=== PATIENT | female | born 1955 | race Hispanic/Latino ===

== ENCOUNTER 2018-08-20 13:54 | Emergency (ER) | payer OTHER ==
--- OUTSIDE RECORDS SUMMARY | 2018-08-20 13:56 | XMS REPORT ---
:1955 [facility] Address [address] [place] [address] Care Team Providers Name Role Phone Unavailable Unavailable Unavailable Payers Payer Name Policy Type Policy Number Effective Date Expiration Date Problems This patient has no known problems. Allergies, Adverse Reactions, Alerts Allergy Allergy Status Severity Reaction(s) Onset Inactive Treating Comments Name Type Date Date Clinician No Known DA Active U 2018-06 Allergies -16 00:00:0 0 Medications This patient has no known medications.
[2018-08-20] MEDS ORDERED: FENTANYL CITR 100 MCG/2 ML ONE (14:38)
--- NOTE | 2018-08-20 14:58 | ER ---
Nurse's Notes [facility] Name: Shayy Blanco Age: 63 yrs Sex: Female : 1955 Arrival Date: 08/20/2018 Time: 13:55 Bed 13 Private MD: Diagnosis: Dysuria Presentation: 08/20 13:57 Presenting complaint: Patient states: burning with urination and frequency that began ss this morning. Denies fever. Transition of care: patient was not received from another setting of care. Onset of symptoms was August 20, 2018. Risk Assessment: Do you want to hurt yourself or someone else? Patient reports no desire to harm self or others. Initial Sepsis Screen: Does the patient have a suspected source of infection? Yes: Dysuria/Frequency/Urgency/UTI. Care prior to arrival: None. 13:57 Method Of Arrival: Ambulatory ss 13:57 Acuity: AVA 3 ss 13:57 Initial Sepsis Screen: Does the patient meet any 2 criteria? RR > 20 per min. No. ss Patient's initial sepsis screen is negative. Historical: - Allergies: 13:59 No Known Allergies; ss - PMHx: 13:59 uterine CA; Hypertension; ss - PSHx: 13:59 Cholecystectomy; ; Hysterectomy; ss - Immunization history:: Adult Immunizations up to date. - Social history:: Smoking status: Patient/guardian denies using tobacco. - Ebola Screening: : Patient denies exposure to infectious person Patient denies travel to an Ebola-affected area in the 21 days before illness onset. Screenin:15 Abuse screen: Denies threats or abuse. Denies injuries from another. Nutritional mg2 screening: No deficits noted. Tuberculosis screening: No symptoms or risk factors identified. Fall Risk None identified. Assessment: 14:15 General: Appears in no apparent distress. uncomfortable, Behavior is calm, cooperative, mg2 appropriate for age. Pain: Complains of pain in suprapubic area Pain currently is 10 out of 10 on a pain scale. Quality of pain is described as burning, pressure. Neuro: Level of Consciousness is awake, alert, obeys commands, Oriented to person, place, time, situation. Cardiovascular: Patient's skin is warm and dry. Respiratory: Airway is patent Respiratory effort is even, unlabored, Respiratory pattern is regular, symmetrical. Derm: Skin is pink, warm \T\ dry. 15:09 Reassessment: Pt will be discharged after shot time. mg2 Vital Signs: 13:59 BP 122 / 93; Pulse 84; Resp 22; Temp 97.0(TE); Pulse Ox 97% on R/A; Weight 85.73 kg; ss Height 5 ft. 2 in. (157.48 cm); Pain 10/10; 15:25 BP 120 / 90; Pulse 83; Resp 16 S; Pulse Ox 98% on R/A; Pain 8/10; mg2 15:26 Pain 8/10; mg2 13:59 Body Mass Index 34.57 (85.73 kg, 157.48 cm) ED Course: 13:55 Patient arrived in ED. 13:57 Triage completed. 13:59 Arm band placed on right wrist. 14:04 Dorene Aguilera FNP-C is PHCP. snw 14:04 Gallo Caballero MD is Attending Physician. snw 14:04 Anna Sanchez RN is Primary Nurse. [facility] 14:15 Patient has correct armband on for positive identification. Bed in low position. Call mg2 light in reach. Side rails up X 1. 15:08 No provider procedures requiring assistance completed. Patient did not have IV access mg2 during this emergency room visit. Administered Medications: 14:33 Drug: fentaNYL (PF) 50 mcg Route: IM; Site: right deltoid; jl7 15:26 Follow up: Pain 8/10 Adult; Response: No adverse reaction; Pain is decreased mg2 15:11 Drug: Rocephin (cefTRIAXone) 1 grams Route: IM; Site: right gluteus; mg2 15:26 Follow up: Response: No adverse reaction mg2 Outcome: 14:57 Discharge ordered by . snw 15:25 Discharged to home ambulatory. mg2 15:25 Condition: stable 15:25 Discharge instructions given to patient, family, Instructed on discharge instructions, follow up and referral plans. medication usage, Demonstrated understanding of instructions, follow-up care, medications, Prescriptions given X 1. 15:27 Patient left the ED. mg2 Signatures: Dorene Aguilera FNP-C FNP-Csnw Deedee Hinson RN RN Anna Sanchez RN RN jl7 Santiago Salazar RN RN mg2 Corrections: (The following items were deleted from the chart) 14:00 13:57 Acuity: AVA 4 ss ss
--- NOTE | 2018-08-20 14:58 | EDPHYS ---
Physician Documentation [facility] Name: Shayy Blanco Age: 63 yrs Sex: Female : 1955 Arrival Date: 08/20/2018 Time: 13:55 Bed 13 Private MD: ED Physician Gallo Caballero HPI: 08/20 14:25 This 63 yrs old Female presents to ER via Ambulatory with complaints of Pain With snw Urination. 14:25 Onset: The symptoms/episode began/occurred suddenly. Associated signs and symptoms: snw Pertinent positives: dysuria. Modifying factors: The patient symptoms are alleviated by nothing. The patient has experienced similar episodes in the past, "all I need is the shot". The patient has been recently seen by a physician: seeing Dr. Belle for chemo. Last chemo three weeks ago. Next one due 08/27/18. Historical: - Allergies: 13:59 No Known Allergies; ss - PMHx: 13:59 uterine CA; Hypertension; ss - PSHx: 13:59 Cholecystectomy; ; Hysterectomy; ss - Immunization history:: Adult Immunizations up to date. - Social history:: Smoking status: Patient/guardian denies using tobacco. - Ebola Screening: : Patient denies exposure to infectious person Patient denies travel to an Ebola-affected area in the 21 days before illness onset. ROS: 14:24 Constitutional: Negative for fever, chills, and weight loss, Eyes: Negative for injury, snw pain, redness, and discharge, ENT: Negative for injury, pain, and discharge, Neck: Negative for injury, pain, and swelling, Cardiovascular: Negative for chest pain, palpitations, and edema, Respiratory: Negative for shortness of breath, cough, wheezing, and pleuritic chest pain, Abdomen/GI: Negative for abdominal pain, nausea, vomiting, diarrhea, and constipation, Back: Negative for injury and pain, MS/Extremity: Negative for injury and deformity, Skin: Negative for injury, rash, and discoloration, Neuro: Negative for headache, weakness, numbness, tingling, and seizure, Psych: Negative for depression, anxiety, suicide ideation, homicidal ideation, and hallucinations. 14:24 : Positive for urinary symptoms, small amounts, burning with urination. Exam: 14:22 Head/Face: Normocephalic, atraumatic. Eyes: Pupils equal round and reactive to light, snw extra-ocular motions intact. Lids and lashes normal. Conjunctiva and sclera are non-icteric and not injected. Cornea within normal limits. Periorbital areas with no swelling, redness, or edema. ENT: Nares patent. No nasal discharge, no septal abnormalities noted. Tympanic membranes are normal and external auditory canals are clear. Oropharynx with no redness, swelling, or masses, exudates, or evidence of obstruction, uvula midline. Mucous membranes moist. Neck: Trachea midline, no thyromegaly or masses palpated, and no cervical lymphadenopathy. Supple, full range of motion without nuchal rigidity, or vertebral point tenderness. No Meningismus. Chest/axilla: Normal chest wall appearance and motion. Nontender with no deformity. No lesions are appreciated. Cardiovascular: Regular rate and rhythm with a normal S1 and S2. No gallops, murmurs, or rubs. Normal PMI, no JVD. No pulse deficits. 14:22 Back: No spinal tenderness. No costovertebral tenderness. Full range of motion. MS/ Extremity: Pulses equal, no cyanosis. Neurovascular intact. Full, normal range of motion. Neuro: Awake and alert, GCS 15, oriented to person, place, time, and situation. Cranial nerves II-XII grossly intact. Motor strength 5/5 in all extremities. Sensory grossly intact. Cerebellar exam normal. Normal gait. Psych: Awake, alert, with orientation to person, place and time. Behavior, mood, and affect are within normal limits. 14:22 Constitutional: The patient appears alert, awake, restless, uncomfortable. 14:22 Respiratory: the patient does not display signs of respiratory distress, Respirations: shallow respirations, tachypnea, Breath sounds: decreased breath sounds, that are moderate. 14:22 Abdomen/GI: Inspection: abdomen appears normal, Bowel sounds: normal, Palpation: mild abdominal tenderness, moderate abdominal tenderness, in the suprapubic area. 14:22 Skin: Appearance: Color: pale, Temperature: normal temperature, Moisture: normal moisture. Vital Signs: 13:59 BP 122 / 93; Pulse 84; Resp 22; Temp 97.0(TE); Pulse Ox 97% on R/A; Weight 85.73 kg; ss Height 5 ft. 2 in. (157.48 cm); Pain 10/10; 15:25 BP 120 / 90; Pulse 83; Resp 16 S; Pulse Ox 98% on R/A; Pain 8/10; mg2 15:26 Pain 8/10; mg2 13:59 Body Mass Index 34.57 (85.73 kg, 157.48 cm) ss MDM: 14:07 Patient medically screened. jose antonio 15:24 Data reviewed: vital signs, nurses notes. Data interpreted: Pulse oximetry: on room air snw is 97 %. Interpretation: normal. Counseling: I had a detailed discussion with the patient and/or guardian regarding: the historical points, exam findings, and any diagnostic results supporting the discharge/admit diagnosis, lab results, the need for outpatient follow up, to return to the emergency department if symptoms worsen or persist or if there are any questions or concerns that arise at home. Special discussion: I have referred the patient to see his PCP for further evaluation of high blood pressure. Based on the history and exam findings, there is no indication for further emergent testing or inpatient evaluation. I discussed with the patient/guardian the need to see the primary care provider for further evaluation of the symptoms. 08/20 14:21 Order name: Urine Microscopic Only; Complete Time: 15:24 snw 08/20 14:21 Order name: Urine Culture snw 08/20 14:39 Order name: Urine Dipstick--Ancillary (enter results) eb Administered Medications: 14:33 Drug: fentaNYL (PF) 50 mcg Route: IM; Site: right deltoid; jl7 15:26 Follow up: Pain 8/10 Adult; Response: No adverse reaction; Pain is decreased mg2 15:11 Drug: Rocephin (cefTRIAXone) 1 grams Route: IM; Site: right gluteus; mg2 15:26 Follow up: Response: No adverse reaction mg2 Disposition: 16:03 Co-signature as Attending Physician, Gallo Caballero MD I agree with the assessment and kdr plan of care. Disposition: 08/20/18 14:57 Discharged to Home. Impression: Dysuria. - Condition is Stable. - Discharge Instructions: Dysuria. - Prescriptions for Macrobid 100 mg Oral Capsule - take 1 capsule by ORAL route every 12 hours for 10 days; 20 capsule. - Medication Reconciliation Form, Thank You Letter, Antibiotic Education, Prescription Opioid Use form. - Follow up: Private Physician; When: Tomorrow; Reason: Recheck today's complaints, Continuance of care, Re-evaluation by your physician. Follow up: Emergency Department; When: As needed; Reason: Worsening of condition. Signatures: Dispatcher [employer] EDRaheel Shaikh MD MD cha Rittger, Kevin, MD MD kdr Therrien, Shelly, PODIATRIST-C PODIATRIST-Csnw Deedee Hinson RN RN ss Anna Sanchez RN RN jl7 Santiago Salazar RN RN mg2 Corrections: (The following items were deleted from the chart) 15:27 14:57 08/20/2018 14:57 Discharged to Home. Impression: Dysuria. Condition is Stable. mg2 Forms are Medication Reconciliation Form, Thank You Letter, Antibiotic Education, Prescription Opioid Use. Follow up: Private Physician; When: Tomorrow; Reason: Recheck today's complaints, Continuance of care, Re-evaluation by your physician. Follow up: Emergency Department; When: As needed; Reason: Worsening of condition. snw
[2018-08-20 15:11] LABS: Urine Bacteria >50 /HPF (<20); Urine Culture Reflex Order REFLEXED; Urine RBC >50 /HPF (NONE SEEN)
[2018-08-20] MEDS ORDERED: WATER FOR INJ,STERILE 10 ML ONE (15:15)
[2018-08-20] MEDS ORDERED: CEFTRIAXONE 1000 MG/VIAL ONE (15:15)
[2018-08-20 16:19] LABS: Urine Blood 3+ (NEG); Urine Glucose NEGATIVE (NEG); Urine Protein 3+ (NEG)
== END 2018-08-20 15:27 | disposition home or self-care (01) ==
LOC: ER 13:54
DX: R30.0 Dysuria (principal); I10 Essential (primary) hypertension; Z85.42 Personal history of malignant neoplasm of other parts of uterus
CPT/HCPCS: 87086; 87088; 96372; 99283; J3010; 81003; 81015

== ENCOUNTER 2018-09-10 18:31 | Observation (INO) | payer OTHER ==
--- OUTSIDE RECORDS SUMMARY | 2018-09-10 18:33 | XMS REPORT ---
:1955 [facility] Address [address] [place] [address] [address] [place] [address] Care Team Providers Name Role Phone Unavailable [...]
[2018-09-10] MEDS ORDERED: MORPHINE 4 MG/ML SYR ONE (19:40)
[2018-09-10] MEDS ORDERED: ONDANSETRON 4 MG/2 ML VIAL ONE (19:40)
[2018-09-10 19:43] LABS: Absolute Lymphocytes (CBC) 1.6 K/uL (0.7-4.9); Absolute Monocytes 1.2 K/uL (0.1-1.3); Absolute Neutrophil 6.4 K/uL (1.8-8.0); Basophils % 0.6 % (0-1.3); Hematocrit 43.6 % (36.0-45.0); MPV 7.9 fL (7.6-11.3); RBC Red Blood Cell Count 4.77 M/uL (3.86-4.86)
[2018-09-10 20:00] LABS: Albumin 3.9 g/dL (3.4-5.0); Bilirubin Direct 0.2 mg/dL (0-0.2); Bilirubin Total 0.5 mg/dL (0.2-1.0); Potassium 3.9 mmol/L (3.5-5.1); Protein, Total 8.2 g/dL (6.4-8.2)
--- NOTE | 2018-09-10 20:23 | RAD REPORT ---
EXAM DESCRIPTION: CT - Stone Protocol - 09/10/2018 7:46 pm CLINICAL HISTORY: Abdominal pain. Left lower quadrant pain COMPARISON: None. TECHNIQUE: Computed axial tomography of the abdomen pelvis was obtained without oral or IV contrast. Lack of IV and oral contrast limits evaluation of solid organs, bowel, and vessels. Coronal reformat alejandrina images were obtained and reviewed. All CT scans are performed using dose optimization technique as appropriate and may include automated exposure control or mA/KV adjustment according to patient size. FINDINGS: A renal calculus is not seen. An ureteral calculus is not noted. A bladder calculus is not present. The liver, spleen, pancreas and adrenals appear grossly normal The gallbladder has been removed There is no evidence of diverticulitis. A hysterectomy has been performed. Many, bilateral pulmonary nodules are present varying in size from a few millimeters to 19 millimeter s. Some contain small cavities. A 17 millimeter soft tissue structure within the left iliac chain is suspicious for a lymph node Inferior vena cava is flat which may indicate dehydration IMPRESSION: Negative for a genitourinary calculus Multiple, bilateral pulmonary nodules some which contain cavities. These may represent metastases, se ptic emboli or other infection 17 millimeter left iliac chain lymph node is suspected
[2018-09-10 21:28] LABS: Urine Bacteria >50 /HPF (<20); Urine Culture Reflex Order REFLEXED; Urine RBC <5 /HPF (NONE SEEN)
--- NOTE | 2018-09-10 21:54 | ER ---
Nurse's Notes [facility] Name: Shayy Blanco Age: 63 yrs Sex: Female : 1955 Arrival Date: 09/10/2018 Time: 18:34 Bed 8 Private MD: Diagnosis: Pyelonephritis;Dehydration Presentation: 09/10 19:05 Presenting complaint: Patient states: Pain to LLQ of abdomen that began this morning, lp1 worsening; States nausea and "I feel like I'm going to get a UTI"; Denies diarrhea, constipation; States currently receiving treatment at [facility] for Leukemia, Lymphoma, endometrial cancer. Transition of care: patient was not received from another setting of care. Onset of symptoms was September 10, 2018. Risk Assessment: Do you want to hurt yourself or someone else? Patient reports no desire to harm self or others. Initial Sepsis Screen: Does the patient meet any 2 criteria? No. Patient's initial sepsis screen is negative. Does the patient have a suspected source of infection? No. Patient's initial sepsis screen is negative. Care prior to arrival: None. 19:05 Method Of Arrival: Wheelchair lp1 19:05 Acuity: AVA 3 lp1 Triage Assessment: 19:08 General: Appears uncomfortable, Behavior is appropriate for age. Pain: Complains of lp1 pain in left lower quadrant. Pain: Noted to be grimacing. GI: Reports lower abdominal pain, nausea. Historical: - Allergies: 19:08 No Known Allergies; lp1 - Home Meds: 19:08 Atenolol Oral [Active]; Magnesium Oxide Oral [Active]; lp1 - PMHx: 19:08 Hypertension; Uterine CA; lymphoma; Leukemia; lp1 - PSHx: 19:08 ; Hysterectomy; Cholecystectomy; lp1 - Immunization history:: Adult Immunizations up to date. - Social history:: Smoking status: Patient/guardian denies using tobacco. - Ebola Screening: : No symptoms or risks identified at this time. Screenin:08 Abuse screen: Denies threats or abuse. Denies injuries from another. Nutritional lp1 screening: No deficits noted. Tuberculosis screening: No symptoms or risk factors identified. 19:25 Fall Risk IV access (20 points). aa1 Assessment: 19:25 General: Appears in no apparent distress. uncomfortable, Behavior is calm, cooperative, aa1 appropriate for age. Pain: Complains of pain in suprapubic area and left lower quadrant Pain began this morning. Neuro: Level of Consciousness is awake, alert, obeys commands, Oriented to person, place, time, situation, Moves all extremities. Gait is steady, Speech is normal. Cardiovascular: Heart tones S1 S2 present Rhythm is regular. Respiratory: Airway is patent Respiratory effort is even, unlabored, Respiratory pattern is regular, symmetrical. GI: Abdomen is non-distended, Abd is soft X 4 quads Abdomen is tender to palpation in suprapubic area and left lower quadrant Reports lower abdominal pain, nausea. : No signs and/or symptoms were reported regarding the genitourinary system. EENT: No signs and/or symptoms were reported regarding the EENT system. Derm: Skin is intact, is healthy with good turgor, Skin is pink, warm \\T\\ dry. Musculoskeletal: Circulation, motion, and sensation intact. Capillary refill < 3 seconds. 20:30 Reassessment: Patient appears in no apparent distress at this time. Patient and/or aa1 family updated on plan of care and expected duration. Pain level reassessed. Patient is alert, oriented x 3, equal unlabored respirations, skin warm/dry/pink. Awaiting lab results. 21:35 Reassessment: Patient appears in no apparent distress at this time. Patient and/or aa1 family updated on plan of care and expected duration. Pain level reassessed. Patient is alert, oriented x 3, equal unlabored respirations, skin warm/dry/pink. Pt awaiting provider reassessment. 22:53 Reassessment: Patient appears in no apparent distress at this time. Patient and/or aa1 family updated on plan of care and expected duration. Pain level reassessed. Patient is alert, oriented x 3, equal unlabored respirations, skin warm/dry/pink. Attempted to call report to 2nd floor, was told nurse unavailable and will call back. 23:23 Reassessment: Patient appears in no apparent distress at this time. Patient is alert, aa1 oriented x 3, equal unlabored respirations, skin warm/dry/pink. Report given to GEOFFREY Payne Patient states feeling better. Patient states symptoms have improved. Vital Signs: 19:07 BP 147 / 98; Pulse 105; Resp 20; Temp 98.9(O); Pulse Ox 97% on R/A; Weight 86.18 kg; lp1 Height 5 ft. 2 in. (157.48 cm); Pain 10/10; 20:06 BP 131 / 71; Pulse 94; Resp 20; Pulse Ox 97% on R/A; Pain 7/10; aa1 21:30 BP 139 / 77; Pulse 88; Resp 18; Pulse Ox 99% on R/A; aa1 22:51 BP 143 / 81; Pulse 93; Resp 18; Pulse Ox 98% on R/A; Pain 8/10; aa1 23:23 BP 130 / 73; Pulse 93; Resp 16; Temp 98.7; Pulse Ox 96% on R/A; Pain 0/10; aa1 23:51 BP 114 / 75; Pulse 97; Resp 16; Pulse Ox 99% on R/A; Pain 0/10; aa1 19:07 Body Mass Index 34.75 (86.18 kg, 157.48 cm) lp1 ED Course: 18:34 Patient arrived in ED. mr 19:07 Triage completed. lp1 19:07 Arm band placed on left wrist. lp1 19:14 Mukund Stuart MD is Attending Physician. tw4 19:25 Patient has correct armband on for positive identification. Placed in gown. Bed in low aa1 position. Call light in reach. Pulse ox on. NIBP on. Warm blanket given. 19:30 Initial lab(s) drawn, by me, sent to lab. Inserted saline lock: 20 gauge in left aa1 antecubital area, using aseptic technique. Blood collected. 19:[address] 19:46 CT completed. Patient tolerated procedure well. Patient moved back [place] 19:51 Elda Forrest, GEOFFREY is Primary Nurse. aa1 20:00 Urine collected: clean catch specimen, clear. aa1 21:53 Jaylin Do MD is Hospitalizing Provider. tw4 22:54 No provider procedures requiring assistance completed. Patient admitted, IV remains in aa1 place. Administered Medications: 19:34 Drug: morphine 4 mg Route: IVP; Infused Over: 2 mins; Site: left antecubital; tl1 20:30 Follow up: Response: No adverse reaction; Pain is decreased aa1 19:34 Drug: Zofran 4 mg Route: IVP; Infused Over: 2 mins; Site: left antecubital; tl1 20:30 Follow up: Response: No adverse reaction; Nausea is decreased aa1 21:49 Drug: Rocephin - (cefTRIAXone) 1 grams Route: IVPB; Infused Over: 5 mins; Site: left tl1 antecubital; 21:59 Drug: fentaNYL (PF) 25 mcg Route: IVP; Infused Over: 2 mins; Site: left antecubital; tl1 23:00 Follow up: Response: No adverse reaction; Pain is unchanged, physician notified aa1 21:59 Drug: NS 0.9% 1000 ml Route: IV; Rate: 1 bolus; Site: left antecubital; tl1 22:30 Follow up: IV Status: Completed infusion aa1 23:15 Drug: Dilaudid 1 mg Route: IVP; Site: left antecubital; aa1 23:50 Follow up: Response: No adverse reaction; Pain is decreased aa1 Outcome: 21:54 Decision to Hospitalize by Provider. tw4 23:51 Admitted to Med/surg accompanied by tech, family with patient, via wheelchair, room aa1 224, with chart, Report called to GEOFFREY Payne 23:51 Condition: stable 23:51 Instructed on the need for admit, Demonstrated understanding of instructions. 23:53 Patient left the ED. aa1 Signatures: Elda Forrest RN RN aa1 Evelyn Montes De Oca NoeNila Laura, RN RN lp1 Chloe Johnson RN RN tl1 Erich Vasques Terrence, MD MD tw4 Corrections: (The following items were deleted from the chart) 20:06 19:25 BP 131 / 71; Pulse 94bpm; Resp 20bpm; Pulse Ox 97% RA; Pain 7/10; aa1 aa1 23:51 23:23 BP 114 / 75; Pulse 97bpm; Resp 16bpm; Pulse Ox 99% RA; Pain 0/10; aa1 aa1
--- NOTE | 2018-09-10 21:54 | EDPHYS ---
Physician Documentation [facility] Name: Shayy Blanco Age: 63 yrs Sex: Female : 1955 Arrival Date: 09/10/2018 Time: 18:34 Bed 8 Private MD: ED Physician Mukund Stuart HPI: 09/10 19:58 This 63 yrs old Female presents to ER via Wheelchair with complaints of Flank tw4 Pain, Nausea. 19:58 The patient complains of pain in the left low back. The pain radiates to the left lower tw4 quadrant. Onset: The symptoms/episode began/occurred today. Modifying factors: The symptoms are alleviated by nothing. the symptoms are aggravated by nothing. Associated signs and symptoms: The patient has no apparent associated signs or symptoms. Severity of pain: At its worst the pain was moderate in the emergency department the pain is unchanged. The patient has not experienced similar symptoms in the past. Historical: - Allergies: 19:08 No Known Allergies; lp1 - Home Meds: 19:08 Atenolol Oral [Active]; Magnesium Oxide Oral [Active]; lp1 - PMHx: 19:08 Hypertension; Uterine CA; lymphoma; Leukemia; lp1 - PSHx: 19:08 ; Hysterectomy; Cholecystectomy; lp1 - Immunization history:: Adult Immunizations up to date. - Social history:: Smoking status: Patient/guardian denies using tobacco. - Ebola Screening: : No symptoms or risks identified at this time. ROS: 19:58 Constitutional: Negative for fever, chills, and weight loss, Eyes: Negative for injury, tw4 pain, redness, and discharge, Cardiovascular: Negative for chest pain, palpitations, and edema, Respiratory: Negative for shortness of breath, cough, wheezing, and pleuritic chest pain, Back: Negative for injury and pain, MS/Extremity: Negative for injury and deformity, Skin: Negative for injury, rash, and discoloration, Neuro: Negative for headache, weakness, numbness, tingling, and seizure. 19:58 Abdomen/GI: Positive for abdominal pain, Negative for nausea and vomiting, nausea, vomiting, and diarrhea, diarrhea, constipation, anorexia, dysphagia, hematemesis, black/tarry stool. Exam: 19:58 Constitutional: This is a well developed, well nourished patient who is awake, alert, tw4 and in no acute distress. Head/Face: Normocephalic, atraumatic. Cardiovascular: Regular rate and rhythm with a normal S1 and S2. No gallops, murmurs, or rubs. Normal PMI, no JVD. No pulse deficits. Respiratory: Lungs have equal breath sounds bilaterally, clear to auscultation and percussion. No rales, rhonchi or wheezes noted. No increased work of breathing, no retractions or nasal flaring. MS/ Extremity: Pulses equal, no cyanosis. Neurovascular intact. Full, normal range of motion. Neuro: Awake and alert, GCS 15, oriented to person, place, time, and situation. Cranial nerves II-XII grossly intact. Motor strength 5/5 in all extremities. Sensory grossly intact. Cerebellar exam normal. Normal gait. 19:58 Abdomen/GI: Inspection: abdomen appears normal, Bowel sounds: normal, Palpation: moderate abdominal tenderness, in the left lower quadrant. 19:58 Back: pain, that is moderate, ROM is normal, normal spinal alignment noted. Vital Signs: 19:07 BP 147 / 98; Pulse 105; Resp 20; Temp 98.9(O); Pulse Ox 97% on R/A; Weight 86.18 kg; lp1 Height 5 ft. 2 in. (157.48 cm); Pain 10/10; 20:06 BP 131 / 71; Pulse 94; Resp 20; Pulse Ox 97% on R/A; Pain 7/10; aa1 21:30 BP 139 / 77; Pulse 88; Resp 18; Pulse Ox 99% on R/A; aa1 22:51 BP 143 / 81; Pulse 93; Resp 18; Pulse Ox 98% on R/A; Pain 8/10; aa1 23:23 BP 130 / 73; Pulse 93; Resp 16; Temp 98.7; Pulse Ox 96% on R/A; Pain 0/10; aa1 23:51 BP 114 / 75; Pulse 97; Resp 16; Pulse Ox 99% on R/A; Pain 0/10; aa1 19:07 Body Mass Index 34.75 (86.18 kg, 157.48 cm) lp1 MDM: 19:21 Patient medically screened. tw4 09/11 05:32 Differential diagnosis: nephrolithiasis, pyelonephritis. Data reviewed: vital signs, tw4 nurses notes. Data interpreted: Pulse oximetry: Interpretation: normal. Counseling: I had a detailed discussion with the patient and/or guardian regarding: the historical points, exam findings, and any diagnostic results supporting the discharge/admit diagnosis. Physician consultation: Jaylin Do MD regarding admission, and will see patient. 09/10 19:22 Order name: Basic Metabolic Panel [facility] 09/10 19:22 Order name: CBC with Diff [facility] 09/10 19:22 Order name: Creatinine for Radiology [facility] 09/10 19:22 Order name: Hepatic Function [facility] 09/10 19:22 Order name: Lipase [facility] 09/10 19:22 Order name: Urine Microscopic Only [facility] 09/10 20:21 Order name: Urine Dipstick--Ancillary (enter results) [facility] 09/10 21:43 Order name: Urine Microscopic Only [facility] 09/10 21:43 Order name: Urine Culture [facility] 09/10 19:22 Order name: IV Saline Lock; Complete Time: 19:34 [facility] 09/10 19:22 Order name: Labs collected and sent; Complete Time: 19:34 [facility] 09/10 19:22 Order name: Urine Dipstick-Ancillary (obtain specimen); Complete Time: 20:06 [facility] Administered Medications: 09/10 19:34 Drug: morphine 4 mg Route: IVP; Infused Over: 2 mins; Site: left antecubital; tl1 20:30 Follow up: Response: No adverse reaction; Pain is decreased aa1 19:34 Drug: Zofran 4 mg Route: IVP; Infused Over: 2 mins; Site: left antecubital; tl1 20:30 Follow up: Response: No adverse reaction; Nausea is decreased aa1 21:49 Drug: Rocephin - (cefTRIAXone) 1 grams Route: IVPB; Infused Over: 5 mins; Site: left tl1 antecubital; 21:59 Drug: fentaNYL (PF) 25 mcg Route: IVP; Infused Over: 2 mins; Site: left antecubital; tl1 23:00 Follow up: Response: No adverse reaction; Pain is unchanged, physician notified aa1 21:59 Drug: NS 0.9% 1000 ml Route: IV; Rate: 1 bolus; Site: left antecubital; tl1 22:30 Follow up: IV Status: Completed infusion aa1 23:15 Drug: Dilaudid 1 mg Route: IVP; Site: left antecubital; aa1 23:50 Follow up: Response: No adverse reaction; Pain is decreased aa1 Disposition: 09/10/18 21:54 Hospitalization ordered by Jaylin Do for Inpatient Admission. Preliminary diagnosis are Pyelonephritis, Dehydration. - Bed requested for Telemetry/MedSurg (Inpatient). - Status is Inpatient Admission. aa1 - Condition is Fair. - Problem is new. - Symptoms are unchanged. UTI on Admission? Yes Signatures: Dispatcher [employer] EDWI Justa Lobo RN RN Elda Forrest RN RN aa1 Jeniffer Black, RN RN Sana Koehler RN RN 1 Chloe Johnson RN RN tl1 Mukund Stuart MD MD tw4 Corrections: (The following items were deleted from the chart) 21:52 21:48 Stone Protocol+CT.RAD.BRZ ordered. [facility] 22:02 21:54 Hospitalization Ordered by Jaylin Do MD for Inpatient Admission. Preliminary diagnosis is Pyelonephritis; Dehydration. Bed requested for Telemetry/MedSurg (Inpatient). Status is Inpatient Admission. Condition is Fair. Problem is new. Symptoms are unchanged. UTI on Admission? Yes. tw4 23:53 22:02 09/10/2018 21:54 Hospitalization Ordered by Jaylin Do MD for Inpatient aa1 Admission. Preliminary diagnosis is Pyelonephritis; Dehydration. Bed requested for Telemetry/MedSurg (Inpatient). Status is Inpatient Admission. Condition is Fair. Problem is new. Symptoms are unchanged. UTI on Admission? Yes. mw
[2018-09-10] MEDS ORDERED: CEFTRIAXONE/SWI 1gm 1 GM/10 ML SYR ONE (21:56)
[2018-09-10] MEDS ORDERED: NA CHLORIDE 0.9% 1,000 ML ONE (22:02)
[2018-09-10] MEDS ORDERED: FENTANYL CITR 100 MCG/2 ML ONE (22:02)
[2018-09-10 22:14] LABS: Urine Blood TRACE (NEG); Urine Glucose NEGATIVE (NEG); Urine Protein TRACE (NEG); Urine Specific Gravity >1.030 (1.005-1.030)
--- NOTE | 2018-09-10 23:07 | P.HP ---
Certification for Inpatient Patient admitted to: Inpatient With expected LOS: >2 Midnights Practitioner: I am a practitioner with admitting privileges, knowledge of patient current condition, hospital course, and medical plan of care. Services: Services provided to patient in accordance with Admission requirements found in Title 42 Section 412.3 of the Code of Federal Regulations Patient History Date of Service: 09/10/18 Reason for admission: pyelonephritis History of Present Illness: Ms Blanco is a 63 years old woman with history of metastatic endometrial cancer , lymphoma, leukemia, currently on ongoing chemotherapy treatment at [facility] , last round was about 3 weeks ago, who came to ER complaining of severe left lower quadrant abdominal pain. It was associated with nausea and vomiting, no diarrhea. The pain is radiated wot her left flank, intensity 10/10. She denied fever or chills at home. She also complain of burning urination. She noticed that her urine is darker and was not easy to come out as usual. In ER no fever, WBC within normal limits, UA abnormal consistent with UTI. CT abd/pelvis remarkable for intrabdominal and bilateral pulmonary nodules, but no acute abnormalities. Allergies No Known Allergies Allergy (Unverified 09/10/18 19:37) Home medications list reviewed: Yes - Past Medical/Surgical History -: endometrial cancer -: Leukemia -: Lymphoma -: -: Hysterectomy -: Cholecystectomy - Family History Family History: Reviewed- Non-Contributory - Social History Alcohol use: No CD- Drugs: No Place of Residence: Home Review of Systems 10-point ROS is otherwise unremarkable Physical Examination - Physical Exam General: Alert, In no apparent distress HEENT: Atraumatic, PERRLA, Mucous membr. moist/pink, EOMI, Sclerae nonicteric Neck: Supple, 2+ carotid pulse no bruit, No LAD, Without JVD or thyroid abnormality Respiratory: Clear to auscultation bilaterally, Normal air movement Cardiovascular: Regular rate/rhythm, Normal S1 S2 Gastrointestinal: Normal bowel sounds, Tenderness (Tenderness to palpation on LLQ) Musculoskeletal: No tenderness Integumentary: No rashes Neurological: Normal gait, Normal speech, Normal strength at 5/5 x4 extr, Normal tone, Normal affect Lymphatics: No axilla or inguinal lymphadenopathy - Studies Laboratory Data (last 24 hrs) 09/10/18 19:30: Creatinine 1.06 09/10/18 19:30: WBC 9.6, Hgb 14.2, Hct 43.6, Plt Count 226 09/10/18 19:30: Sodium 139, Potassium 3.9, BUN 18, Creatinine 1.04, Glucose 135 H, Total Bilirubin 0.5, AST 45 H, ALT 32, Alkaline Phosphatase 98, Lipase 95 Assessment and Plan - Problems (Diagnosis) (1) Pyelonephritis Current Visit: Yes Status: Acute (2) Endometrial cancer Current Visit: Yes Status: Acute (3) Leukemia Current Visit: Yes Status: Acute Qualifiers: Leukemia type: chronic, unspecified type Leukemia Active/Remission status: in remission Qualified Code(s): C95.11 - Chronic leukemia of unspecified cell type, in remission (4) Lymphoma Current Visit: Yes Status: Acute Qualifiers: Lymphoma type: unspecified type Lymphoma site: unspecified region Qualified Code(s): C85.90 - Non-Hodgkin lymphoma, unspecified, unspecified site - Plan Will admit the patient to the hospital due to UTI. Her clinical presentation with suspicious for pyelonephritis, although she has no fever, or leukocytosis. Will start empiric treatment with IV Levaquin. Blood and urine culture are in process. - Advance Directives Does patient have a Living Will: No Does patient have a Durable POA for Healthcare: No - Code Status/Comfort Care Code Status Assessed: Yes Code Status: Full Code
[2018-09-10] MEDS ORDERED: HYDROMORPHONE HCL 1 MG/ML INJ ONE (23:21)
[2018-09-10] MEDS ORDERED: ONDANSETRON 4 MG/2 ML VIAL IV PRN (23:22)
[2018-09-10] MEDS ORDERED: ACETAMINOPHEN 500 MG TAB PO PRN (23:22)
[2018-09-11] MEDS: NA CHLORIDE 0.9% 1,000 ML IV SCH ×4 (00:59→21:41)
[2018-09-11] MEDS: Levofloxacin 750mg IV 750 MG/150 ML BAG IV SCH ×2 (00:59→22:17)
[2018-09-11] MEDS: MORPHINE 2 MG/ML SYR IV PRN ×2 (01:00→21:37)
[2018-09-11] MEDS ORDERED: MORPHINE 4 MG/ML SYR ONE ×2 (01:05→21:45)
[2018-09-11] MEDS ORDERED: CYCLOBENZAPRINE 10 MG TAB PO PRN ×2 (01:30→07:59)
[2018-09-11] MEDS ORDERED: guaiFENesin 100 MG/5 ML UCUP PO PRN (01:31)
[2018-09-11] MEDS: KETOROLAC 30 MG/ML INJ IV PRN ×3 (03:40→17:30)
[2018-09-11 05:50] LABS: Absolute Lymphocytes (CBC) 1.2 K/uL (0.7-4.9); Absolute Monocytes 0.9 K/uL (0.1-1.3); Basophils % 0.4 % (0-1.3); Eosinophils % 3.7 % (0-4.4); Hematocrit 38.6 % (36.0-45.0); Lymphocytes % 16.1 % (15.3-44.8); Monocytes % 12.5 % (3.3-12.3); RBC Red Blood Cell Count 4.21 M/uL (3.86-4.86)
[2018-09-11 05:56] LABS: Magnesium 1.5 mg/dL (1.8-2.4)
[2018-09-11] MEDS ORDERED: Magnesium Sulfate 2gm IVPB 2 G/50 ML BAG IV ONE (06:23)
[2018-09-11] MEDS ORDERED: HYDROCODONE/APAP 10/325 TAB PO PRN (07:59)
[2018-09-11] MEDS ORDERED: BENZONATATE 100 MG CAP PO PRN (07:59)
[2018-09-11] MEDS ORDERED: ZOLPIDEM TARTRATE 10 MG TABLET PO PRN (07:59)
[2018-09-11] MEDS ORDERED: LACTULOSE 20 GM/30 ML UCUP PO PRN (08:08)
[2018-09-11] MEDS: ENOXAPARIN 40 MG/0.4 ML SQ SCH (08:20)
[2018-09-11] MEDS: DOCUSATE NA 100 MG CAP PO SCH (08:21)
[2018-09-11] MEDS: FAMOTIDINE 20 MG TAB PO SCH ×2 (08:21→21:39)
[2018-09-11] MEDS ORDERED: INFLUENZA VACCINE (for 3y+) 0.5 ML DOSE IMVAC ONE (09:00)
--- NOTE | 2018-09-11 09:43 | RAD REPORT ---
EXAM DESCRIPTION: Pool Copeland (2 Views)09/11/2018 9:22 am CLINICAL HISTORY: Cough COMPARISON: None FINDINGS: Multiple, bilateral pulmonary nodules vary in size from a few millimeters to a couple anisha timeters. Diffuse bilateral interstitial lung opacities are noted. The heart is normal size IMPRESSION: Bilateral pulmonary nodules may represent metastases, septic emboli or other infection Bilateral interstitial lung opacities probably are mostly chronic. A superimposed pneumonitis is poss ible.
--- NOTE | 2018-09-11 11:36 | P.PN ---
Subjective Date of Service: 09/11/18 Primary Care Provider: none; [facility] Chief Complaint: pyelonephritis Subjective: Other (Patient doing better. Left flank pain improved) Physical Examination - Vital Signs Temperature: 97.2 F Blood Pressure: 133/65 Pulse: 82 Respirations: 20 Pulse Ox (%): 96 - Physical Exam General: Alert, In no apparent distress, Oriented x3, Cooperative HEENT: Atraumatic Neck: Supple Respiratory: Clear to auscultation bilaterally, Normal air movement Cardiovascular: Normal pulses, Regular rate/rhythm Gastrointestinal: Normal bowel sounds, Soft and benign, Non-distended, No masses , No rebound, No guarding, Tenderness (Left flank pain improved) Musculoskeletal: No erythema, No tenderness, No warmth Integumentary: No erythema, No warmth, No cyanosis Neurological: Normal speech, Normal strength at 5/5 x4 extr, Normal tone, Normal affect - Studies Laboratory Data (last 24 hrs) 09/10/18 19:30: Creatinine 1.06 09/10/18 19:30: WBC 9.6, Hgb 14.2, Hct 43.6, Plt Count 226 09/10/18 19:30: Sodium 139, Potassium 3.9, BUN 18, Creatinine 1.04, Glucose 135 H, Total Bilirubin 0.5, AST 45 H, ALT 32, Alkaline Phosphatase 98, Lipase 95 09/10/18 19:22: Creatinine Cancelled 09/10/18 19:22: WBC Cancelled, Hgb Cancelled, Hct Cancelled, Plt Count Cancelled 09/10/18 19:22: Sodium Cancelled, Potassium Cancelled, BUN Cancelled, Creatinine Cancelled, Glucose Cancelled, Total Bilirubin Cancelled, AST Cancelled, ALT Cancelled, Alkaline Phosphatase Cancelled, Lipase Cancelled Medications List Reviewed: Yes Assessment & Plan Discharge Plan: Home Plan to discharge in: 48 Hours Physician Review Additional Text: Impression: Left flank pain secondary to left pyelonephritis History of endometrial cancer stage IV with metastasis to the lung, leukemia and lymphoma on chemotherapy Renal insufficiency likely related to dehydration Plan: Left flank pain secondary to left pyelonephritis: Continue with IV antibiotic therapy. Urine culture pending. Continue IV fluids. Encourage ambulation. Will transition to oral medication once urine culture results finalize. Anticipate discharge in the next 24-48 hr. History of endometrial cancer stage IV with metastasis to the lung, leukemia and lymphoma on chemotherapy: Patient is originally from [facility]. Patient has moved locally to get chemotherapy at [facility]. Patient will require PCP. Social work to help in this process. Renal insufficiency likely related to dehydration: Continue IV fluids. Will monitor and adjust appropriately Time Spent Managing Pts Care (In Minutes): 55
[2018-09-11] MEDS ORDERED: MORPHINE 4 MG/ML SYR IV PRN (23:00)
[2018-09-12 04:36] LABS: Absolute Lymphocytes (CBC) 1.1 K/uL (0.7-4.9); Absolute Neutrophil 3.9 K/uL (1.8-8.0); Basophils % 0.4 % (0-1.3); Eosinophils % 3.1 % (0-4.4); Hematocrit 38.2 % (36.0-45.0); MPV 8.3 fL (7.6-11.3); RBC Red Blood Cell Count 4.17 M/uL (3.86-4.86)
[2018-09-12 04:53] LABS: Magnesium 1.7 mg/dL (1.8-2.4)
[2018-09-12 05:11] LABS: Blood Morphology Comment NOT SEEN (NOT SEEN); Platelet Estimate ADEQ; Urine White Blood Cell Casts OK
[2018-09-12] MEDS: NA CHLORIDE 0.9% 1,000 ML IV SCH (05:30)
[2018-09-12] MEDS ORDERED: MAGNESIUM SULFATE 1 gm IVPB 1 GM/100 ML BAG IV ONE (06:13)
[2018-09-12] MEDS: ENOXAPARIN 40 MG/0.4 ML SQ SCH (08:57)
[2018-09-12] MEDS: DOCUSATE NA 100 MG CAP PO SCH (08:57)
[2018-09-12] MEDS: FAMOTIDINE 20 MG TAB PO SCH (08:58)
--- NOTE | 2018-09-12 11:48 | P.DS ---
Admission Date: 09/10/18 Discharge Date: 09/12/18 Primary Care Provider: none; Oncology-[facility] Disposition: ROUTINE DISCHARGE Discharge Condition: GOOD Reason for Admission: pyelonephritis Consultations: none Procedures: CT scan: COMPARISON: None. TECHNIQUE: Computed axial tomography of the abdomen pelvis was obtained without oral or IV contrast. Lack of IV and oral contrast limits evaluation of solid organs, bowel, and vessels. Coronal reformatted images were obtained and reviewed. All CT scans are performed using dose optimization technique as appropriate and may include automated exposure control or mA/KV adjustment according to patient size. FINDINGS: A renal calculus is not seen. An ureteral calculus is not noted. A bladder calculus is not present. The liver, spleen, pancreas and adrenals appear grossly normal The gallbladder has been removed There is no evidence of diverticulitis. A hysterectomy has been performed. Many, bilateral pulmonary nodules are present varying in size from a few millimeters to 19 millimeters. Some contain small cavities. A 17 millimeter soft tissue structure within the left iliac chain is suspicious for a lymph node Inferior vena cava is flat which may indicate dehydration IMPRESSION: Negative for a genitourinary calculus Multiple, bilateral pulmonary nodules some which contain cavities. These may represent metastases, septic emboli or other infection 17 millimeter left iliac chain lymph node is suspected Medical Problem List: Left flank pain secondary to left pyelonephritis History of endometrial cancer stage IV with metastasis to the lung, leukemia and lymphoma on chemotherapy Renal insufficiency likely related to dehydration Chronic pain secondary to stage IV cancer with metastases Brief History of Present Illness: 63-year-old female presented to emergency room with left flank pain. Patient with UTI symptoms. Pyelonephritis was suspected. Patient admitted for treatment. Hospital Course: The patient presents with left flank pain. Patient found to have UTI. Clinically patient appeared to have left pyelonephritis due to left flank pain. CT scan did not show any evidence of this. Urine culture positive. Patient has responded well. White count within normal range. Pro calcitonin negative. At discharge she will continue with Bactrim DS 1 pill twice daily for 7 days. UTI prevention will be provided. Patient will establish care locally with PCP. She plans to see Dr. Brambila who she has already met. He will need to follow up on urine culture results. Patient with history of endometrial cancer stage IV with metastasis to the lung. Patient also with leukemia and lymphoma on chemotherapy. She is originally from [facility]. She is moved locally to get chemotherapy at [facility]. This appears stable. Patient will follow up with oncology as directed. Patient with mild renal insufficiency. This is likely from dehydration. Patient receive IV fluids. At this time she is doing well. Renal function stable. Patient with chronic constipation. Patient will continue with docusate 100 mg daily. Lactulose will be provided as needed. Patient with chronic pain secondary to stage IV cancer. She will continue with her pain medication. Vital Signs/Physical Exam: Temp Pulse Resp BP Pulse Ox 99.1 F 105 H 18 131/62 98 09/12/18 08:00 09/12/18 08:00 09/12/18 08:00 09/12/18 08:00 09/12/18 08:00 General: Alert, In no apparent distress, Oriented x3, Cooperative HEENT: Atraumatic Neck: Supple Respiratory: Clear to auscultation bilaterally, Normal air movement Cardiovascular: Normal pulses, Regular rate/rhythm Gastrointestinal: Normal bowel sounds, Soft and benign, Non-distended, No tenderness, No masses, No rebound, No guarding Musculoskeletal: No erythema, No tenderness, No warmth Integumentary: No tenderness/swelling, No erythema, No warmth, No cyanosis Neurological: Normal speech, Normal strength at 5/5 x4 extr, Normal tone, Normal affect Laboratory Data at Discharge: WBC 6.2 K/uL (4.3-10.9) D 09/12/18 04:04 Hgb 12.7 g/dL (12.0-15.0) 09/12/18 04:04 Hct 38.2 % (36.0-45.0) 09/12/18 04:04 Plt Count 188 K/uL (152-406) 09/12/18 04:04 Sodium 140 mmol/L (136-145) 09/12/18 04:04 Potassium 4.0 mmol/L (3.5-5.1) 09/12/18 04:04 BUN 11 mg/dL (7-18) 09/12/18 04:04 Creatinine 0.84 mg/dL (0.55-1.3) 09/12/18 04:04 Glucose 103 mg/dL (74-106) 09/12/18 04:04 Magnesium 1.7 mg/dL (1.8-2.4) L 09/12/18 04:04 Total Bilirubin 0.5 mg/dL (0.2-1.0) 09/10/18 19:30 AST 45 U/L (15-37) H 09/10/18 19:30 ALT 32 U/L (12-78) 09/10/18 19:30 Alkaline Phosphatase 98 U/L (45-117) 09/10/18 19:30 Lipase 95 U/L (73-393) 09/10/18 19:30 Home Medications: Benzonatate [Tessalon Perle*] 1 cap PO TID PRN 09/11/18 Cyclobenzaprine [Flexeril*] 10 mg PO DAILY 09/11/18 Hydrocodone Bit/Acetaminophen [Hydrocodon-Acetaminophn 10-325] 1.5 tab PO Q5H Zolpidem Tartrate [Ambien*] 10 mg PO BEDTIME 09/11/18 Docusate [Colace Cap*] 100 mg PO DAILY #30 cap 09/12/18 Lactulose [Cephulac*] 30 ml PO BID PRN #1 bottle 09/12/18 Smz./Tmp. [Bactrim Ds 800 MG/160 MG*] 1 tab PO BID #14 tab 09/12/18 New Medications: Docusate [Colace Cap*] 100 mg PO DAILY #30 cap Lactulose [Cephulac*] 30 ml PO BID PRN #1 bottle PRN Reason: Constipation Smz./Tmp. [Bactrim Ds 800 MG/160 MG*] 1 tab PO BID #14 tab Patient Discharge Instructions: 1. Patient will need to follow up to establish care with a PCP within 1 week. 2. The patient presented with left flank pain. Patient found to have UTI. Clinically patient appeared to have left pyelonephritis due to left flank pain. CT scan did not show any evidence of this. Urine culture positive. Patient has responded well. White count within normal range. Pro calcitonin negative. At discharge she will continue with Bactrim DS 1 pill twice daily for 7 days. UTI prevention will be provided. Patient will establish care locally with PCP. She plans to see Dr. Brambila who she has already met. He will need to follow up on urine culture results. 3. Patient with history of endometrial cancer stage IV with metastasis to the lung. Patient also with leukemia and lymphoma on chemotherapy. She is originally from [facility]. She is moved locally to get chemotherapy at [facility]. This appears stable. Patient will follow up with oncology as directed. 4. Patient with mild renal insufficiency. This is likely from dehydration. Patient receive IV fluids. At this time she is doing well. Renal function stable. 5. Patient with chronic constipation. Patient will continue with docusate 100 mg daily. Lactulose will be provided as needed. 6. Patient with chronic pain secondary to stage IV cancer. She will continue with her pain medication. Diet: Regular Activity: Fall precautions Time spent managing pt's care (in minutes): 55
[2018-09-12] MEDS ORDERED: SMZ./TMP. 800/160 MG TABLET PO SCH (21:00)
== END 2018-09-12 12:32 | disposition home or self-care (01) ==
LOC: ER 18:31 → INTOOBSV 22:36 → ERHOLD 22:36 → 2ND 23:46
PROVIDERS: ADMIT Internal Medicine; ATTEND Internal Medicine
DX: N39.0 Urinary tract infection, site not specified (principal); C95.90 Leukemia, unspecified not having achieved remission; C85.90 Non-Hodgkin lymphoma, unspecified, unspecified site; N28.9 Disorder of kidney and ureter, unspecified; K59.09 Other constipation; G89.3 Neoplasm related pain (acute) (chronic); Z85.44 Personal history of malignant neoplasm of other female genital organs; Z85.118 Personal history of other malignant neoplasm of bronchus and lung
CPT/HCPCS: 36415 ×2; 71046; 74176; 76377; 80048 ×3; 80076; 83690; 83735 ×4; 84145; 85025 ×3; 87040 ×2; 87077; 87086; 87088; 87186; 96361; 96374; 96375; 97162; 99285; G0378 ×2; J0696; J1170; J1650 ×2; J2405; J3010; J3475 ×2; J7030 ×5; 81003; 81015

== ENCOUNTER 2018-12-16 14:20 | Inpatient (IN) | payer OTHER ==
--- OUTSIDE RECORDS SUMMARY | 2018-12-16 14:23 | XMS REPORT ---
:1955 [facility] [address] [place] [address] Care Team Providers Name Role Phone Unavailable Unavailable Unavailable Payers Payer Name Policy Type Policy Number Effective Date Expiration Date Problems This patient has no known problems. Allergies, Adverse Reactions, Alerts Allergy Allergy Status Severity Reaction(s) Onset Inactive Treating Comments Name Type Date Date Clinician iodine DA Active IA 2018-11 00:00:0 0 No Known DA Active U 2018-0616 00:00:0 0 iodine DA Active IA 2017-12 00:00:0 0 LIDOCIANE DA Active 2016-11 00:00:0 0 Medications This patient has no known medications. Results Test Description Test Time Test Comments Text Results Atomic Results Result Comments BASIC METABOLIC PANEL 2018-11-22 06:19:00 Test Item Value Reference Range Comments SODIUM (test code=NA) 138 mmol/L 136-145 POTASSIUM (test code=K) 4.0 mmol/L 3.5-5.1 CHLORIDE (test code=CL) 105 mmol/L 98-107 CARBON DIOXIDE (test code=CO2) 22 mmol/L 21-32 GLUCOSE (test code=GLU) 148 mg/dL 70-100 BLOOD UREA NITROGEN (test 15 mg/dL 7-18 code=BUN) GLOMERULAR FILTRATION RATE (test > 60.00 >=60 Reporting units: code=GFR) mL/min/1.73m\\S\\2 (Modified MDRD formula)REFERENCE RANGE: > or=60 ml/min/1.73M2IF PATIENT IS -BURMESE, MULTIPLY REPORTED RESULT BY1.21. CREATININE (test code=CREAT) 0.80 mg/dL 0.51-0.95 CALCIUM (test code=CA) 8.9 mg/dL 8.5-10.1 PROCALCITONIN (PCT)2018-11-22 06:19:00 Test Item Value Reference Range Comments PROCALCITONIN (PCT) (test <0.05 ng/mL <0.5 REFERENCE code=PROCAL) RANGES---------------->2.0 ng/ml High risk for progression to severe sepsis and/or septic shock.0.5 - 2.0 ng/ml Sepsis should be considered.<0.5 ng/ml Low risk for progression to severe sepsis and/or septic shock. BASIC METABOLIC [id number] 06:04:00 Test Item Value Reference Range Comments SODIUM (test code=NA) 138 mmol/L 136-145 POTASSIUM (test code=K) 4.0 mmol/L 3.5-5.1 CHLORIDE (test code=CL) 105 mmol/L 98-107 CARBON DIOXIDE (test code=CO2) 22 mmol/L 21-32 GLUCOSE (test code=GLU) 148 mg/dL 70-100 BLOOD UREA NITROGEN (test 15 mg/dL 7-18 code=BUN) GLOMERULAR FILTRATION RATE > 60.00 >=60 Reporting units: (test code=GFR) mL/min/1.73m\\S\\2 (Modified MDRD formula)REFERENCE RANGE: > or=60 ml/min/1.73M2IF PATIENT IS -BURMESE, MULTIPLY REPORTED RESULT BY1.21. CREATININE (test code=CREAT) 0.80 mg/dL 0.51-0.95 CALCIUM (test code=CA) 8.9 mg/dL 8.5-10.1 PROCALCITONIN (PCT)2018-11-22 06:04:00 Test Item Value Reference Range Comments PROCALCITONIN (PCT) (test code=PROCAL) ng/mL <0.5 CBC W/AUTO [id number] 05:28:00 Test Item Value Reference Range Comments WHITE BLOOD CELL (test code=WBC) 5.4 X10(3) 4.5-11.0 RED BLOOD CELL (test code=RBC) 4.16 X10(6) 4.2-5.4 HEMOGLOBIN (test code=HGB) 12.7 g/dL 12.5-16.0 HEMATOCRIT (test code=HCT) 39.5 % 37.0-47.0 MEAN CELL VOLUME (test code=MCV) 95.0 fl 78-100 MEAN CELL HGB (test code=MCH) 30.5 pg 26.0-34.0 MEAN CELL HGB CONCETRATION (test code=MCHC) 32.2 g/dl 30.0-37.0 RED CELL DISTRIBUTION WIDTH (test code=RDW) 15.0 % 11.5-14.5 PLATELET COUNT (test code=PLT) 223 X10(3) 150-350 MEAN PLATELET VOLUME (test code=MPV) 9.6 fl 8.7-11.4 NEUTROPHIL % (test code=NT%) 76.0 % 36.0-66.0 IMMATURE GRANULOCYTE % (test code=IG%) 0.6 % 0.0-2.0 LYMPHOCYTE % (test code=LY%) 20.4 % 16-50 MONOCYTE % (test code=MO%) 2.8 % 0.0-13.0 EOSINOPHIL % (test code=EO%) 0.0 % 0.0-4.5 BASOPHIL % (test code=BA%) 0.2 % 0.0-1.5 NUCLEATED RBC % (test code=NRBC%) 0.0 % 0-0.2 NEUTROPHIL # (test code=NT#) 4.1 X10(3) 1.7-7.7 IMMATURE GRANULOCYTE # (test code=IG#) 0.03 X10(3)uL 0.00-0.03 LYMPHOCYTE # (test code=LY#) 1.1 X10(3) 0.7-4.0 MONOCYTE # (test code=MO#) 0.2 X10(3) 0.0-0.89 EOSINOPHIL # (test code=EO#) 0.0 X10(3) 0.0-0.6 BASOPHIL # (test code=BA#) 0.0 X10(3) 0.0-0.2 NUCLEATED RBC # (test code=NRBC#) 0.00 K/mm3 0.0-0.1 - CTA [id number] 13:05:00 [facility] 1955 Age/S: 63 / F [address] [facility] Unit #: [id number] Loc: [place] [address] Phys: Yeison Rodriguez Jr, MD Acct: [id number] Dis Date: Status: ADM IN PHONE #: [phone] Exam Date: 11/21/2018 1230 FAX #: [phone] Reason: PE EXAMS: CPTCODE: [id number] CTA CHEST [id number] REASON FOR EXAM: PE TECHNIQUE: Volumetric CT angiographic data acquisition of the thorax wasobtained after the administration of 100 mL of Isovue-370 IV contrast. Standard axial and CT angiographic MIP sagittal and coronal images are submitted. All CT scan to performed using radiation dose reduction technique. Technical factors are evaluated to insure appropriate moderation of exposure. Automated dose management technologies applied to adjust the radiation dose to minimize exposure well achieving a diagnostic quality image. COMPARISON: None available FINDINGS: CHEST : Lungs: Bilateral pulmonary nodules are present largest of the left upper lobe measures approximately 2.6 cm. Majority of the pulmonary nodules demonstrate small cavitary lesions. Diffuse septal thickening with centrilobular nodules. Thyroid gland: Unremarkable. Adenopathy: Enlarged pretracheal lymph node at 1.2 cm. Heart and pericardium: Unremarkable. Aorta / Coronary arteries: Unremarkable. Pulmonary arteries: No central or segmental pulmonary embolism. Esophagus/Esophageal hiatus: Unremarkable. UPPER ABDOMEN: The gallbladder surgically absent. Osseous Structures: No acute or suspicious osseous lesion. IMPRESSION: 1. No pulmonary embolism. 2. Extensive bilateral pulmonary nodules concerning for metastatic disease, per prior imaging patient has a history of endometrial carcinoma (which can metastasize to the lungs). Primary lung malignancy with local metastatic disease is felt less likely. 3. 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 4. Pretracheal adenopathy. PAGE 1 Signed Report( CONTINUED) [facility] 1955 Age/S: 63 / F [address] [facility] Unit #: [id number] Loc:[place], [place] [address] Phys: Yeison Rodriguez Jr, MD Acct: [id number] Dis Date: Status: ADM IN PHONE #: [phone] Exam Date: 2018 1230 FAX #: [phone] Reason: PE EXAMS: CPT CODE: [id number] CTA CHEST 56380 <Continued> at 1305 Reported and signed by : RAMA WINSLOW CC: Kayce Nelson MD Technologist:Mich Feldman RT (R) CT (R) CTDI: 14.80 DLP: 478.85 Trnscb Date/Time: 11/21/2018 (1305) [email or web address] Orig Print D/T: S: 11/21/2018 (4449) CTDI: 14.80 DLP: 478.85 PAGE 2 Signed ReportARTERIAL BLOOD [id number] 12:03:00 Test Item Value Reference Range Comments ARTERIAL BLOOD GAS PH (test code=PHA) 7.396 7.35-7.45 ARTERIAL BLOOD GAS PCO2 (test code=PCO2A) 40.70 mmHg 35-55 ARTERIAL BLOOD GAS PO2 (test code=PO2A) 66.30 mmHg 80-100 BICARBONATE TOTAL HCO3 (test code=HCO3) 24.30 meq/L 22-26 BASE EXCESS (test code=ZAK) 0.00 -2.0-+2.0 ABG TYPE (test code=TYPEA) ROOM AIR FIO2 (test code=FIO2A) 21.00 % ABG PATIENT RESP RATE (test code=RRPATA) 20 /MIN ABG TEMPERATURE (test code=TEMPA) 37 C ABG SITE (test code=SITEA) R RADIAL NALINI'S TEST (test code=ALLENS) POSITIVE HGB O2 SAT (test code=HBOSAT) 91.0 % CARBOXYHEMOGLOBIN (test code=HOHGBT) 0.10 % METHEMOGLOBIN (test code=METHGB) 1.00 % Include Electrolyte Panel? NPage RT? YB-TYPE NATRIURETIC [id number] 10:11 :00 Test Item Value Reference Range Comments B-TYPE NATRIURETIC PEPTIDE (test code=BNP) 39.6 PG/ML 0-100 LACTIC [id number] 09:34:00 Test Item Value Reference Range Comments LACTIC ACID (test code=LACT) 1.9 mmol/l 0.4-2.0 BASIC METABOLIC [id number] 09:33:00 Test Item Value Reference Range Comments SODIUM (test code=NA) 137 mmol/L 136-145 POTASSIUM (test code=K) 3.8 mmol/L 3.5-5.1 CHLORIDE (test code=CL) 102 mmol/L 98-107 CARBON DIOXIDE (test code=CO2) 26 mmol/L 21-32 GLUCOSE (test code=GLU) 96 mg/dL 70-100 BLOOD UREA NITROGEN (test 16 mg/dL 7-18 code=BUN) GLOMERULAR FILTRATION RATE 50.17 >=60 Reporting units: (test code=GFR) mL/min/1.73m\\S\\2 (Modified MDRD formula)REFERENCE RANGE: > or=60 ml/min/1.73M2IF PATIENT IS -BURMESE, MULTIPLY REPORTED RESULT BY1.21. CREATININE (test code=CREAT) 1.10 mg/dL 0.51-0.95 CALCIUM (test code=CA) 8.9 mg/dL 8.5-10.1 [id number] 09:33:00 Test Item Value Reference Range Comments TROPONIN-I (test code=TROPI) ng/ml 0.00-0.045 BASIC METABOLIC [id number] 09:33:00 Test Item Value Reference Range Comments SODIUM (test code=NA) 137 mmol/L 136-145 POTASSIUM (test code=K) 3.8 mmol/L 3.5-5.1 CHLORIDE (test code=CL) 102 mmol/L 98-107 CARBON DIOXIDE (test code=CO2) 26 mmol/L 21-32 GLUCOSE (test code=GLU) 96 mg/dL 70-100 BLOOD UREA NITROGEN (test 16 mg/dL 7-18 code=BUN) GLOMERULAR FILTRATION RATE 50.17 >=60 Reporting units: (test code=GFR) mL/min/1.73m\\S\\2 (Modified MDRD formula)REFERENCE RANGE: > or=60 ml/min/1.73M2IF PATIENT IS -BURMESE, MULTIPLY REPORTED RESULT BY1.21. CREATININE (test code=CREAT) 1.10 mg/dL 0.51-0.95 CALCIUM (test code=CA) 8.9 mg/dL 8.5-10.1 [id number] 09:33:00 Test Item Value Reference Range Comments TROPONIN-I (test <0.015 ng/ml 0.00-0.045 GUIDELINES: 0.08 - 0.09 code=TROPI) Indeterminate0.10 Risk Stratification Limit: Suggest sequential testing0.11 - 0.50 "[place]": Suggest sequential testing0.60 - 1.50 AMI cutoff: Myocardial Injury by WHO criteria BASIC METABOLIC [id number] 09:26:00 Test Item Value Reference Range Comments SODIUM (test code=NA) 137 mmol/L 136-145 POTASSIUM (test code=K) 3.8 mmol/L 3.5-5.1 CHLORIDE (test code=CL) 102 mmol/L 98-107 CARBON DIOXIDE (test code=CO2) 26 mmol/L 21-32 GLUCOSE (test code=GLU) 96 mg/dL 70-100 BLOOD UREA NITROGEN (test code=BUN) 16 mg/dL 7-18 GLOMERULAR FILTRATION RATE (test code=GFR) >=60 CREATININE (test code=CREAT) mg/dL 0.51-0.95 CALCIUM (test code=CA) 8.9 mg/dL 8.5-10.1 [id number] 09:26:00 Test Item Value Reference Range Comments TROPONIN-I (test code=TROPI) ng/ml 0.00-0.045 PROTHROMBIN [id number] 09:25:00 Test Item Value Reference Range Comments PROTHROMBIN TIME PATIENT 10.8 SECONDS 8.7-12.1 THERAPEUTIC LEVEL: 1.5 TO 1.9 (test code=PTP) TIMES NORMAL RANGE INTERNATIONAL NORMAL 1.0 Recommended Therapeutic PT RATIO (test code=INR) Ratios For Oral AnticoagulantTherapy. CONDITION INT'L NORMALIZED PT RATIO Prophylaxis of venous thrombosis 2.0 - 3.0in high risk medical or surgicalpatients, treatment of venousthrombosis, prevention of embolism. Prevention of recurrent embolism, 2.5 - 3.5or treatment of patients with mechanicalprosthetic heart valves. THROMBOPLASTIN TIME [id number] 09:25:00 Test Item Value Reference Range Comments THROMBOPLASTIN TIME PARTIAL (test code=PTT) 25.4 seconds 22.8-34.4 - XR CHEST 1 [id number] 09:18:00 [facility] Name: NUBIA CORTÉS [address] [place] [address] Phys: Yeison Rodriguez Jr, MD [place] [address] : 1955 Age: 63 Sex: F Acct: [id number] Loc: [place] PHONE #: [phone] Exam Date: 11/21/2018 Status: REG ER FAX #: [phone] Radiology No: Unit No: [id number] Reason: chest pain EXAMS: CPT CODE: [id number] XR CHEST 1 V 61468 Fluoro Time: DAP (Gy m2): Air Kerma (mGy): Chest Radiograph History: chest pain Comparison: December 23, 2017 Location: R16 A single frontal view of the chest is submitted. The heart appears unchanged in size. Pulmonary vasculature is unremarkable. 3 cm mass in the left lung. There are minimal patchy opacities in the lungs bilaterally. The bones appear unchanged. IMPRESSION: There is a 3 cm mass in the left lung. This is concerning for a neoplasticprocess, either primary lung cancer or metastatic disease. A CT scan of the chest is recommended for further evaluation. There are minimal patchy opacities in the lungs bilaterally. This could be due to pneumonia or pulmonary edema. at 0918 Reported and signed by: JUAN CARLOS GOLDSMITH M.D. CC: Kayce Nelson MD Technologist: Olesya Anand, RT (R ) Transcribed Date/Time: 11/21/2018 (917) tSTEVEN Orig Print D/T: S: 11/21/2018 (73) PAGE 1 Signed ReportCBC W/AUTO [id number] 09:13:00 Test Item Value Reference Range Comments WHITE BLOOD CELL (test code=WBC) 9.2 X10(3) 4.5-11.0 RED BLOOD CELL (test code=RBC) 4.45 X10(6) 4.2-5.4 HEMOGLOBIN (test code=HGB) 13.8 g/dL 12.5-16.0 HEMATOCRIT (test code=HCT) 42.1 % 37.0-47.0 MEAN CELL VOLUME (test code=MCV) 94.6 fl 78-100 MEAN CELL HGB (test code=MCH) 31.0 pg 26.0-34.0 MEAN CELL HGB CONCETRATION (test code=MCHC) 32.8 g/dl 30.0-37.0 RED CELL DISTRIBUTION WIDTH (test code=RDW) 15.5 % 11.5-14.5 PLATELET COUNT (test code=PLT) 264 X10(3) 150-350 MEAN PLATELET VOLUME (test code=MPV) 9.1 fl 8.7-11.4 NEUTROPHIL % (test code=NT%) 59.0 % 36.0-66.0 IMMATURE GRANULOCYTE % (test code=IG%) 0.2 % 0.0-2.0 LYMPHOCYTE % (test code=LY%) 16.8 % 16-50 MONOCYTE % (test code=MO%) 18.0 % 0.0-13.0 EOSINOPHIL % (test code=EO%) 5.5 % 0.0-4.5 BASOPHIL % (test code=BA%) 0.5 % 0.0-1.5 NUCLEATED RBC % (test code=NRBC%) 0.0 % 0-0.2 NEUTROPHIL # (test code=NT#) 5.5 X10(3) 1.7-7.7 IMMATURE GRANULOCYTE # (test code=IG#) 0.02 X10(3)uL 0.00-0.03 LYMPHOCYTE # (test code=LY#) 1.6 X10(3) 0.7-4.0 MONOCYTE # (test code=MO#) 1.7 X10(3) 0.0-0.89 EOSINOPHIL # (test code=EO#) 0.5 X10(3) 0.0-0.6 BASOPHIL # (test code=BA#) 0.1 X10(3) 0.0-0.2 NUCLEATED RBC # (test code=NRBC#) 0.00 K/mm3 0.0-0.1
[2018-12-16 15:24] LABS: Absolute Lymphocytes (CBC) 2.3 K/uL (0.7-4.9); Absolute Monocytes 1.5 K/uL (0.1-1.3); Absolute Neutrophil 11.6 K/uL (1.8-8.0); Basophils % 0.4 % (0-1.3); Hematocrit 52.4 % (36.0-45.0); MPV 8.2 fL (7.6-11.3); Monocytes % 9.6 % (3.3-12.3); RBC Red Blood Cell Count 5.52 M/uL (3.86-4.86)
[2018-12-16] MEDS ORDERED: NA CHLORIDE 0.9% 1,000 ML ONE ×2 (15:42→19:26)
[2018-12-16] MEDS ORDERED: ONDANSETRON 4 MG/2 ML VIAL ONE (15:42)
[2018-12-16] MEDS ORDERED: MORPHINE 4 MG/ML SYR ONE ×2 (15:42→17:51)
[2018-12-16 16:41] LABS: Albumin 3.9 g/dL (3.4-5.0); Bilirubin Direct 0.3 mg/dL (0-0.2); Bilirubin Total 0.9 mg/dL (0.2-1.0); Potassium 4.9 mmol/L (3.5-5.1); Protein, Total 7.9 g/dL (6.4-8.2)
--- NOTE | 2018-12-16 17:17 | RAD REPORT ---
EXAM DESCRIPTION: CT - Abdomen Pelvis W Contrast - 12/16/2018 4:59 pm CLINICAL HISTORY: Abdominal pain COMPARISON: None. TECHNIQUE: Biphasic, helical CT imaging of the abdomen and pelvis was performed following 100 ml non -ionic IV contrast. No oral contrast administered. All CT scans are performed using dose optimization technique as appropriate and may include automated exposure control or mA/KV adjustment according to patient size. FINDINGS: Multiple variably sized irregular noncalcified pulmonary nodules are present up to 2 cm in size. A few of these are centrally necrotic or have cavitation. No pericardial thickening or effusio n. The liver, spleen, and pancreas show no suspicious findings. Cholecystectomy clips are present. No bi liary tree dilatation. Symmetric renal function is seen with no hydronephrosis or suspicious renal mass. No pyelonephritis o r acute parenchymal process. Urinary bladder is mostly contracted. No gross abnormality seen. Uterus is absent. Ovaries are absent or atrophic. No adrenal abnormalities. Stomach is distended by retained fluid. Prominence of the antrum is believed to be peristalsis artifa ct. No true gastric wall thickening or mass suspected. There is a small amount of ingested food layer ing in the dependent portion of the fundus. Duodenum is normal in diameter. From the ligament of Trei tz to the distal ileum there is dilation of the small bowel up to 3.3 cm. There is an abrupt transiti on low in the pelvis on the right. Small bowel content is fecalized proximal to the transition point. Distal ileum is decompressed. This could be adhesion or stricture. No measurable mass lesions seen. A small mass of the distal ileum is possible. Ileocecal valve is normal. There is a small amount of s tool in the right-side of the colon. Colon is mostly decompressed. No free air, free fluid or inflammatory stranding. No hernia, mass or bulky lymphadenopathy. A sma ll left iliac chain lymph node is again identified. No suspicious bony findings. No IMPRESSION: Early small bowel obstruction pattern with an abrupt transition in the distal ileum jacob g the lower lateral right pelvic sidewall. Small bowel content is fecalized proximal to the transiti on point. Stricture or adhesion would be the most likely etiology. A small mass of the distal ileum is possible given the lung base findings. Multiple irregular pulmonary nodules in the lower lung rodriguez not substantially different from compar wade. Pattern is not substantially different from August 2018. Metastatic disease is suspected. No i nformation available regarding any possible intervening workup.
[2018-12-16] MEDS ORDERED: CEFOXITIN/SWI 1gm 1 GM/10 ML SYR ONE (17:51)
[2018-12-16] MEDS ORDERED: LIDOCAINE VISCOUS 2% SOLN 15 ML UDC ONE (18:18)
--- NOTE | 2018-12-16 18:32 | ER ---
Nurse's Notes [facility] Name: Shayy Blanco Age: 63 yrs Sex: Female : 1955 Arrival Date: 12/16/2018 Time: 14:22 Bed 27 Private MD: Diagnosis: Bowel Obstruction Presentation: 12/16 14:39 Presenting complaint: Patient states: generalized abd pain and body cramping that began aa5 last night. Pt also c/o nausea and vomiting, denies diarrhea. Pt reports last BM was yesterday. Pt reports last chemo was 2 weeks ago. Transition of care: patient was not received from another setting of care. Onset of symptoms was November 2018. Risk Assessment: Do you want to hurt yourself or someone else? Patient reports no desire to harm self or others. Initial Sepsis Screen: Does the patient meet any 2 criteria? No. Patient's initial sepsis screen is negative. Does the patient have a suspected source of infection? No. Patient's initial sepsis screen is negative. Care prior to arrival: None. 14:39 Method Of Arrival: Wheelchair aa5 14:39 Acuity: AVA 2 aa5 Historical: - Allergies: 14:40 No Known Allergies; aa5 - Home Meds: 20:20 Atenolol Oral [Active]; Magnesium Oxide Oral [Active]; mg2 - PMHx: 14:40 Hypertension; Leukemia; LYMPHOMA; Uterine CA; aa5 - PSHx: 14:40 ; Hysterectomy; Cholecystectomy; aa5 - Immunization history:: Flu vaccine is not up to date. - Social history:: Smoking status: Patient/guardian denies using tobacco. - Ebola Screening: : No symptoms or risks identified at this time. Screenin:21 Abuse screen: Denies threats or abuse. Denies injuries from another. Nutritional mg2 screening: No deficits noted. Tuberculosis screening: No symptoms or risk factors identified. Fall Risk IV access (20 points). Assessment: 15:22 General: Appears in no apparent distress. comfortable, Behavior is calm, cooperative. mg2 Pain: Complains of pain in abdomen Pain does not radiate. Pain currently is 10 out of 10 on a pain scale. Quality of pain is described as crampy. Neuro: Level of Consciousness is awake, alert, obeys commands, Oriented to person, place, time. Cardiovascular: Capillary refill < 3 seconds Patient's skin is warm and dry. Respiratory: Airway is patent Respiratory effort is even, unlabored, Respiratory pattern is regular, symmetrical. GI: Bowel sounds present X 4 quads. Abd is soft and non tender Reports lower abdominal pain, upper abdominal pain, nausea, vomiting, since last night. EENT: No deficits noted. Derm: Skin is intact, is healthy with good turgor, Skin is pink, warm \T\ dry. normal. Musculoskeletal: Circulation, motion, and sensation intact. Capillary refill < 3 seconds. 16:55 Reassessment: patient sent for ct abdomen. mg2 20:23 Reassessment: hospitalist came and assessed the patient. patient agreed for admission. mg2 20:35 Reassessment: floor nurse will call back to receive the report. mg2 Vital Signs: 14:40 BP 124 / 88; Pulse 135; Resp 18 S; Temp 98.0(O); Pulse Ox 98% on R/A; Weight 83.91 kg aa5 (R); Height 5 ft. 2 in. (157.48 cm) (R); Pain 10/10; 17:52 BP 127 / 87; Pulse 110; Resp 18; Pulse Ox 96% on R/A; mg2 19:00 BP 115 / 80; Pulse 111; Resp 18; Temp 98; Pulse Ox 100% on R/A; mg2 20:19 BP 116 / 92; Pulse 110; Resp 18; Temp 97.9(O); Pulse Ox 94% on R/A; mg2 14:40 Body Mass Index 33.84 (83.91 kg, 157.48 cm) aa5 ED Course: 14:22 Patient arrived in ED. as 14:39 Arm band placed on. aa5 14:40 Triage completed. aa5 15:04 Santiago Salazar, GEOFFREY is Primary Nurse. mg2 15:11 Jose Viera PA is PHCP. jmm 15:11 Ariel Bloom MD is Attending Physician. jmm 15:21 No provider procedures requiring assistance completed. Inserted saline lock: 20 gauge mg2 in right antecubital area, using aseptic technique. Blood collected. 15:24 Radiology exam delayed due to lab results not completed at this time. (BUN/Creatinine). mw3 15:24 Patient has correct armband on for positive identification. mg2 15:43 Radiology exam delayed due to lab results not completed at this time. (BUN/Creatinine). vm2 17:00 CT Abd/Pelvis - W/Contrast In Process Unspecified. EDMS 18:24 NGT: inserted via left nare. verified placement of air over stomach, verified return of mg2 gastric contents, to intermittent suction. Returned gastric contents. Returned bile. Patient tolerated well. 18:31 Chiki Ortega MD is Hospitalizing Provider. rufino 20:55 Patient admitted, IV remains in place. mg2 Administered Medications: 15:40 Drug: Zofran 4 mg Route: IVP; Site: right antecubital; mg2 15:50 Follow up: Response: No adverse reaction; Marked relief of symptoms mg2 15:40 Drug: NS 0.9% 1000 ml Route: IV; Rate: 1 bolus; Site: right antecubital; mg2 20:43 Follow up: Response: No adverse reaction; IV Status: Completed infusion; IV Intake: mg2 1000ml 15:41 Drug: morphine 4 mg Route: IVP; Site: right antecubital; mg2 15:50 Follow up: Response: No adverse reaction; Marked relief of symptoms mg2 17:52 Drug: Mefoxin 1 grams Route: IVPB; Infused Over: 30 mins; Site: right antecubital; mg2 20:43 Follow up: Response: No adverse reaction; IV Status: Completed infusion mg2 17:52 Drug: morphine 4 mg Route: IVP; Site: right antecubital; mg2 20:43 Follow up: Response: No adverse reaction; Marked relief of symptoms mg2 18:23 Drug: NS 0.9% 1000 ml Route: IV; Rate: 1 bolus; Site: right antecubital; mg2 20:24 Follow up: Response: No adverse reaction; IV Status: Completed infusion mg2 20:42 Follow up: IV Status: Infusion continued upon admission; IV Intake: 300ml mg2 Intake: 20:37 IV: 1200ml; Total: 1200ml. mg2 20:42 IV: 300ml; Total: 1500ml. mg2 20:43 IV: 1000ml; Total: 2500ml. mg2 Output: 20:37 Gastric: 200ml (NGT); Total: 200ml. mg2 Outcome: 18:31 Decision to Hospitalize by Provider. chanelle 20:55 Admitted to Med/surg accompanied by blossom, via wheelchair, room 213, with chart, Report mg2 called to GEOFFREY Mendoza 20:55 Condition: stable 20:55 Instructed on the need for admit, Demonstrated understanding of instructions. 21:14 Patient left the ED. mg2 Signatures: Dispatcher [employer] EDMS Jose Viera PA PA jmm Martinez, Amelia as Calderon, Audri, RN RN aa5 Marli eH 2 Santiago Salazar RN RN mg2 Danni Zaldivar mw3 Corrections: (The following items were deleted from the chart) 14:44 14:39 Presenting complaint: Patient states: generalized abd pain and body cramping that aa5 began last night. Pt also c/o nausea and vomiting, denies diarrhea. Pt reports last BM was yesterday. aa5 14:44 14:39 Acuity: AVA 3 aa5 aa5 20:34 20:19 BP 116 / 92; Pulse 110bpm; Resp 18bpm; Pulse Ox 94% RA; Temp 98.1F; mg2 mg2
--- NOTE | 2018-12-16 18:32 | EDPHYS ---
Physician Documentation [facility] Name: Shayy Blanco Age: 63 yrs Sex: Female : 1955 Arrival Date: 12/16/2018 Time: 14:22 Bed 27 Private MD: ED Physician Ariel Bloom HPI: 12/16 15:20 This 63 yrs old Female presents to ER via Wheelchair with complaints of m Abdominal Pain. 15:20 The patient presents with abdominal pain. Onset: The symptoms/episode began/occurred jmm gradually. 15:21 The symptoms do not radiate. Associated signs and symptoms: Pertinent positives: jmm vomiting, Pertinent negatives: diarrhea. The symptoms are described as crampy. This is a 63 year old female with a history of HTN, leukemia, lymphoma, uterine cancer that presents to the ED with complaints of lower abdominal pain described as cramping beginning last night with multiple episodes of vomiting. Patient is currently on chemotherapy for metastatic uterine cancer. . Historical: - Allergies: 14:40 No Known Allergies; aa5 - Home Meds: 20:20 Atenolol Oral [Active]; Magnesium Oxide Oral [Active]; mg2 - PMHx: 14:40 Hypertension; Leukemia; LYMPHOMA; Uterine CA; aa5 - PSHx: 14:40 ; Hysterectomy; Cholecystectomy; aa5 - Immunization history:: Flu vaccine is not up to date. - Social history:: Smoking status: Patient/guardian denies using tobacco. - Ebola Screening: : No symptoms or risks identified at this time. ROS: 15:21 Constitutional: Negative for fever, chills, and weight loss, Cardiovascular: Negative jmm for chest pain, palpitations, and edema, Respiratory: Negative for shortness of breath, cough, wheezing, and pleuritic chest pain. 15:21 Skin: Negative for injury, rash, and discoloration, Neuro: Negative for headache, weakness, numbness, tingling, and seizure. 15:21 Abdomen/GI: Positive for abdominal pain, nausea and vomiting. 15:21 All other systems are negative. Exam: 15:21 Constitutional: This is a well developed, well nourished patient who is awake, alert, jmm and in no acute distress. Head/Face: atraumatic. Eyes: EOMI, no conjunctival erythema appreciated ENT: Moist Mucus Membranes Neck: Trachea midline, Supple Chest/axilla: Normal chest wall appearance and motion. Cardiovascular: Regular rate and rhythm. No edema appreciated Respiratory: Normal respirations, no respiratory distress appreciated 15:21 Back: Normal ROM Skin: General appearance color normal MS/ Extremity: Moves all extremities, no obvious deformities appreciated, no edema noted to the lower extremities Neuro: Awake and alert, normal gait Psych: Behavior is normal, Mood is normal, Patient is cooperative and pleasant 15:21 Abdomen/GI: Inspection: abdomen appears normal, Bowel sounds: normal, Palpation: soft, moderate abdominal tenderness, in the right lower quadrant. Vital Signs: 14:40 BP 124 / 88; Pulse 135; Resp 18 S; Temp 98.0(O); Pulse Ox 98% on R/A; Weight 83.91 kg aa5 (R); Height 5 ft. 2 in. (157.48 cm) (R); Pain 10/10; 17:52 BP 127 / 87; Pulse 110; Resp 18; Pulse Ox 96% on R/A; mg2 19:00 BP 115 / 80; Pulse 111; Resp 18; Temp 98; Pulse Ox 100% on R/A; mg2 20:19 BP 116 / 92; Pulse 110; Resp 18; Temp 97.9(O); Pulse Ox 94% on R/A; mg2 14:40 Body Mass Index 33.84 (83.91 kg, 157.48 cm) aa5 MDM: 15:16 Patient medically screened. [facility] 18:05 Data reviewed: vital signs, nurses notes. Counseling: I had a detailed discussion with [facility] the patient and/or guardian regarding: the historical points, exam findings, and any diagnostic results supporting the discharge/admit diagnosis, lab results, radiology results, the need for further work-up and treatment in the hospital. ED course: I discussed the patient with Dr. Bloom whom evaluated the patient. Dr. Bloom discussed the patient with Dr. Polk whom will consult on admission. . 18:30 ED course: I discussed the patient with Dr. Ortega whom accepted admission. . [facility] 12/16 15:06 Order name: Basic Metabolic Panel; Complete Time: 16:44 [facility] 12/16 15:06 Order name: CBC with Diff; Complete Time: 15:37 [facility] 12/16 15:06 Order name: Creatinine for Radiology; Complete Time: 16:44 mg2 12/16 15:06 Order name: Hepatic Function; Complete Time: 16:44 [facility] 12/16 15:06 Order name: Lipase; Complete Time: 16:44 [facility] 12/16 15:20 Order name: CT Abd/Pelvis - W/Contrast; Complete Time: 17:19 [facility] 12/16 15:06 Order name: IV Saline Lock; Complete Time: 15: [facility] 12/16 18:51 Order name: CONS Physician Consult EDAZ 12/16 15:06 Order name: Labs collected and sent; Complete Time: 15:25 mg2 12/16 15:42 Order name: Labs - recollect needed; Complete Time: 16:08 bd 12/16 17:20 Order name: NG Tube; Complete Time: 18:23 [facility] Administered Medications: 15:40 Drug: Zofran 4 mg Route: IVP; Site: right antecubital; mg2 15:50 Follow up: Response: No adverse reaction; Marked relief of symptoms mg2 15:40 Drug: NS 0.9% 1000 ml Route: IV; Rate: 1 bolus; Site: right antecubital; mg2 20:43 Follow up: Response: No adverse reaction; IV Status: Completed infusion; IV Intake: mg2 1000ml 15:41 Drug: morphine 4 mg Route: IVP; Site: right antecubital; mg2 15:50 Follow up: Response: No adverse reaction; Marked relief of symptoms mg2 17:52 Drug: Mefoxin 1 grams Route: IVPB; Infused Over: 30 mins; Site: right antecubital; mg2 20:43 Follow up: Response: No adverse reaction; IV Status: Completed infusion mg2 17:52 Drug: morphine 4 mg Route: IVP; Site: right antecubital; mg2 20:43 Follow up: Response: No adverse reaction; Marked relief of symptoms mg2 18:23 Drug: NS 0.9% 1000 ml Route: IV; Rate: 1 bolus; Site: right antecubital; mg2 20:24 Follow up: Response: No adverse reaction; IV Status: Completed infusion mg2 20:42 Follow up: IV Status: Infusion continued upon admission; IV Intake: 300ml mg2 Disposition: 12/16/18 18:31 Hospitalization ordered by Chiki Ortega for Inpatient Admission. Preliminary diagnosis is Bowel Obstruction. - Bed requested for Telemetry/MedSurg (Inpatient). - Status is Inpatient Admission. mg2 - Condition is Stable. - Problem is new. - Symptoms have improved. UTI on Admission? No Addendum: 12/19/2018 07:57 Co-signature as Attending Physician, Ariel Bloom MD. r n Signatures: Dispatcher [employer] EDMS Ileana Soto Justa Hooker, RN RN Jose Viera, PA PA [facility] Ariel Bloom MD MD rn Calderon, Audri RN RN aa5 Santiago Salazar RN RN mg2 Corrections: (The following items were deleted from the chart) 12/16 15:22 15:20 Onset: The symptoms/episode began/occurred gradually, [facility] 19:43 18:31 Hospitalization Ordered by Chiki Ortega MD for Inpatient Admission. Preliminary diagnosis is Bowel Obstruction. Bed requested for Telemetry/MedSurg (Inpatient). Status is Inpatient Admission. Condition is Stable. Problem is new. Symptoms have improved. UTI on Admission? No. [facility] 21:14 19:43 12/16/2018 18:31 Hospitalization Ordered by Chiki Ortega MD for Inpatient mg2 Admission. Preliminary diagnosis is Bowel Obstruction. Bed requested for Telemetry/MedSurg (Inpatient). Status is Inpatient Admission. Condition is Stable. Problem is new. Symptoms have improved. UTI on Admission? No.
--- NOTE | 2018-12-16 20:22 | P.HP ---
Certification for Inpatient Patient admitted to: Inpatient With expected LOS: >2 Midnights Practitioner: I am a practitioner with admitting privileges, knowledge of patient current condition, hospital course, and medical plan of care. Services: Services provided to patient in accordance with Admission requirements found in Title 42 Section 412.3 of the Code of Federal Regulations Patient History Date of Service: 12/16/18 Reason for admission: SBO History of Present Illness: Ms Blanco is a 63 years old woman with history of lymphoma, leukemia, stage IV endometrial cancer under chemotherapy treatment, last time 2 weeks ago, came to ED complaining of abdominal pain, 10/10 of intensity, located in lower abdomen, associated with nausea and vomiting. Her symptoms started last night. Last bowel movement yesterday night, no passing gases since so. She denied fever or chills. The patient has history of several abdominal surgeries. Lab work remarkable for leukocytosis 16.5K, CT abd pelvis consistent with early SBO. Allergies No Known Allergies Allergy (Verified 09/11/18 00:10) Home medications list reviewed: Yes Home Medications: Benzonatate [Tessalon Perle*] 1 cap PO TID PRN 09/11/18 Cyclobenzaprine [Flexeril*] 10 mg PO DAILY 09/11/18 Hydrocodone Bit/Acetaminophen [Hydrocodon-Acetaminophn 10-325] 1.5 tab PO Q5H Zolpidem Tartrate [Ambien*] 10 mg PO BEDTIME 09/11/18 Docusate [Colace Cap*] 100 mg PO DAILY #30 cap 09/12/18 Lactulose [Cephulac*] 30 ml PO BID PRN #1 bottle 09/12/18 Smz./Tmp. [Bactrim Ds 800 MG/160 MG*] 1 tab PO BID #14 tab 09/12/18 - Past Medical/Surgical History Diabetic: No -: endometrial cancer -: Leukemia -: Lymphoma -: lung cancer -: -: Hysterectomy -: Cholecystectomy - Family History Father -: Cancer Notes: lung cancer - Social History Alcohol use: No CD- Drugs: No Caffeine use: Yes Place of Residence: Home Review of Systems 10-point ROS is otherwise unremarkable Physical Examination - Physical Exam General: Alert, In no apparent distress HEENT: Atraumatic, PERRLA, Mucous membr. moist/pink, EOMI, Sclerae nonicteric Neck: Supple, 2+ carotid pulse no bruit, No LAD, Without JVD or thyroid abnormality Respiratory: Clear to auscultation bilaterally, Normal air movement Cardiovascular: Regular rate/rhythm, Normal S1 S2 Gastrointestinal: Hypoactive, Tenderness (lower abdomen) Musculoskeletal: No tenderness Integumentary: No rashes Neurological: Normal speech, Normal strength at 5/5 x4 extr, Normal tone, Normal affect Lymphatics: No axilla or inguinal lymphadenopathy - Studies Laboratory Data (last 24 hrs) 12/16/18 16:00: Creatinine 1.03 12/16/18 16:00: Sodium 139, Potassium 4.9, BUN 17, Creatinine 1.02, Glucose 130 H, Total Bilirubin 0.9, AST 24, ALT 27, Alkaline Phosphatase 103, Lipase 59 L 12/16/18 15:15: WBC 15.6 H, Hgb 17.2 H, Hct 52.4 H, Plt Count 336 Assessment and Plan - Problems (Diagnosis) (1) SBO (small bowel obstruction) Current Visit: Yes Status: Acute (2) Endometrial cancer Onset Date: 09/11/18 Current Visit: No Status: Acute (3) Leukemia Onset Date: 09/11/18 Current Visit: No Status: Acute Qualifiers: Leukemia type: unspecified Leukemia Active/Remission status: in remission Qualified Code(s): C95.91 - Leukemia, unspecified, in remission (4) Lymphoma Onset Date: 09/11/18 Current Visit: No Status: Acute Qualifiers: Lymphoma type: unspecified type Lymphoma site: unspecified region Qualified Code(s): C85.90 - Non-Hodgkin lymphoma, unspecified, unspecified site - Plan The patient will be admitted to the hospital due to SBO. Already NGT placed, started on empiric antibiotics, Surgery team consulted. Continue NPO, IV fluids and symptomatic medication. - Advance Directives Does patient have a Living Will: Yes Does patient have a Durable POA for Healthcare: Yes - Code Status/Comfort Care Code Status Assessed: Yes Code Status: Full Code
[2018-12-16] MEDS: MORPHINE 2 MG/ML SYR IV PRN (20:55)
[2018-12-16] MEDS ORDERED: MORPHINE 2 MG/ML SYR ONE (20:55)
[2018-12-16] MEDS: CIPROFLOXACIN 400mg IV 400 MG/200 ML BAG IV SCH (22:24)
[2018-12-16] MEDS: NA CHLORIDE 0.9% 1,000 ML IV SCH (23:15)
[2018-12-17] MEDS: METRONIDAZOLE 500mg IVPB 500 MG/100 ML BAG IV SCH ×3 (01:01→16:44)
[2018-12-17] MEDS: MORPHINE 2 MG/ML SYR IV PRN ×4 (01:04→22:07)
[2018-12-17 05:53] LABS: Absolute Lymphocytes (CBC) 0.9 K/uL (0.7-4.9); Absolute Monocytes 1.2 K/uL (0.1-1.3); Absolute Neutrophil 5.7 K/uL (1.8-8.0); Basophils % 0.2 % (0-1.3); Eosinophils % 1.2 % (0-4.4); Hematocrit 41.9 % (36.0-45.0); Lymphocytes % 11.3 % (15.3-44.8); MPV 7.7 fL (7.6-11.3); Monocytes % 15.2 % (3.3-12.3); RBC Red Blood Cell Count 4.42 M/uL (3.86-4.86)
[2018-12-17 06:04] LABS: Albumin 3.2 g/dL (3.4-5.0); Bilirubin Total 1.2 mg/dL (0.2-1.0); Magnesium 1.6 mg/dL (1.8-2.4); Phosphorus 3.4 mg/dL (2.5-4.9); Potassium 4.7 mmol/L (3.5-5.1); Protein, Total 6.5 g/dL (6.4-8.2)
[2018-12-17 06:51] LABS: Blood Morphology Comment NOT SEEN (NOT SEEN); Platelet Estimate ADEQ
[2018-12-17] MEDS ORDERED: MAGNESIUM SULFATE 1 gm IVPB 1 GM/100 ML BAG IV ONE (09:00)
[2018-12-17] MEDS ORDERED: MINERAL OIL 30 ML UCUP PO ONE ×2 (09:41→17:00)
[2018-12-17] MEDS: NA CHLORIDE 0.9% 1,000 ML IV SCH ×3 (09:44→22:10)
[2018-12-17] MEDS ORDERED: PNEUMOCOCCAL VACCINE 0.5 ML IMVAC ONE (09:49)
--- NOTE | 2018-12-17 09:58 | P.CNS ---
Date of Consult: 12/17/18 PC: I was asked to evaluate this 63-year-old female who presented to the emergency room with severe abdominal pain, nausea and vomiting. HPC: This patient, [place] the beach [place] Ate something heating me. Yesterday began to have severe cramping abdominal pain that became unbearable and she return to the emergency room for evaluation and treatment. PMH: Hypertension PSHx: Lymphoma, year and carcinoma, metastatic disease to the lungs, cholecystectomy SOC: No known allergies, takes atenolol SYS REVIEW: States she has been in otherwise good health. No cough for wheeze , this is her 1st episode of this abdominal pain she states no urinary complaints O/E awake alert very comfortable at the moment HEENT: Nasogastric tube in place, draining considerable amount overnight Chest: Clear ABD: Soft minimal pain or discomfort. Not distended at the moment LOCO: Intact DATA: White cell count down from [address] scan shows possible area of transition in the distal ileum IMPRESSION: Partial small-bowel obstruction PLAN: The patient was admitted to the hospital. She has IV fluids running. She has a nasogastric tube in place. She is currently stable at the moment in fact she says she feels 100% better. Will start mineral oil through the nasogastric tube with intermittent clamping. So far it appears this may resolved non operatively.
[2018-12-17] MEDS: CIPROFLOXACIN 400mg IV 400 MG/200 ML BAG IV SCH ×2 (10:29→22:08)
[2018-12-17] MEDS: ENOXAPARIN 40 MG/0.4 ML SQ SCH (16:44)
--- NOTE | 2018-12-17 20:51 | PN ---
Date of Progress Note: 12/17/2018 Subjective: The patient seen and examined. Chart reviewed and case discussed with RN and Dr. Radha masterson. The patient feels significantly better. She has NG tube in place. Medications: List reviewed. Physical Examination: Vital Signs: Temperature 97.8, heart rate 109, blood pressure 107/65, respirations 18, and O2 95% on room air. General: Awake, alert, and oriented x3. Ill-appearing female, in some mild distress. Obese, BMI 33 . CV: S1 and S2. Sinus tachycardia. Peripheral pulses present. Respiratory: Moving air well bilaterally. No wheezing or stridor. Gastrointestinal: Abdomen is mildly distended, soft, nontender. Absent bowel sounds. Extremities: No clubbing, cyanosis, or edema. Neurologic: Cranial nerves 2 through 12 intact grossly. No focal neurological deficit. Speech is n ormal. Laboratory Data: Sodium 139, potassium 4.7, chloride 105, CO2 26, BUN 17, creatinine 0.8 glucose 116 , calcium 8.8, phosphorus 3.4, magnesium 1.6. WBC 8, H and H 14.1 and 41.9, platelets 215, neutrophi ls 72%. Assessment And Plan: A 63-year-old female with: 1.Small bowel obstruction. The patient currently has NG tube in place with suctioning. Dr. Polk has ordered some mineral oil. We will continue to monitor. Encourage ambulation. Likely due to ad hesions, the patient has multiple abdominal surgeries in the past. 2.Endometrial cancer. The patient currently on treatment. Last chemotherapy was 2 weeks ago. The patient goes to [facility], sees Dr. Singh. 3.Leukemia, currently in remission. 4.Lymphoma. 5.Lung cancer metastatic disease. 6.Obesity, BMI of 33.1. 7.Deep vein thrombosis prophylaxis with sequential compression devices. We will add Lovenox as there is no surgical intervention at this time. SA/MODL Voice ID: [id number] Report ID: [id number]
[2018-12-18] MEDS: METRONIDAZOLE 500mg IVPB 500 MG/100 ML BAG IV SCH ×3 (01:03→17:31)
[2018-12-18] MEDS: NA CHLORIDE 0.9% 1,000 ML IV SCH ×3 (05:43→22:29)
[2018-12-18 06:22] LABS: Magnesium 1.7 mg/dL (1.8-2.4); Potassium 3.9 mmol/L (3.5-5.1)
[2018-12-18] MEDS ORDERED: MAGNESIUM SULFATE 1 gm IVPB 1 GM/100 ML BAG IV ONE (07:00)
[2018-12-18] MEDS: CIPROFLOXACIN 400mg IV 400 MG/200 ML BAG IV SCH ×2 (08:26→21:32)
[2018-12-18] MEDS ORDERED: KCL 20 MEQ/100 mL IVPB 20 MEQ/100 ML BAG IV SCH (09:00)
[2018-12-18] MEDS ORDERED: MINERAL OIL 30 ML UCUP PO ONE (09:43)
[2018-12-18] MEDS: PHENOL 1.4% ORAL SPRAY 180ML MM PRN (13:23)
--- NOTE | 2018-12-18 16:39 | PN ---
Date of Progress Note: 12/18/2018 Subjective: The patient seen and examined. Chart reviewed and case discussed with RN. The patient is doing well, has been passing gas, tolerating clear liquids. The patient was advanced by surgery. No complaints of pain. Medications: List reviewed. Physical Examination: Vital Signs: Temperature 97.7, heart rate 96, blood pressure 126/74, respirations 18, and O2 96% on room air. General: Awake, alert, and oriented x3. Mildly ill-appearing female, obese. CV: S1 and S2. Regular rate and rhythm. Peripheral pulses present. Respiratory: Moving air well bilaterally. No wheezing or stridor. Gastrointestinal: Abdomen is soft. Tenderness to palpation in the lower quadrant. No rebound or gu arding. Bowel sounds positive. Extremities: No clubbing, cyanosis, or edema. Neurologic: Nonfocal. Laboratory Data: Sodium 140, potassium 3.9, chloride 106, CO2 27, BUN 12, creatinine 0.72, glucose 8 2, and magnesium 1.7. Assessment And Plan: A 63-year-old female with: 1.Small bowel obstruction. The patient is passing flatus, has bowel sounds. However, still somewha t tender. We will clamp NG tube and if does well by lunch, we will pull NG tube today. Continue wit h clear liquids and advance as tolerated. 2.Endometrial cancer, currently on treatment. Last chemotherapy was 2 weeks ago. The patient will follow up with her oncologist at [facility]. 3.Leukemia, currently in remission. 4.Lymphoma. 5.Metastatic lung cancer. 6.Obesity, BMI of 33. 7.Deep vein thrombosis prophylaxis with sequential compression devices and Lovenox. Plan: We will adjust IV fluid rate, clamp NG tube, and if doing better we will discontinue NG tube t his afternoon. SA/MODL Voice ID: [id number] Report ID: [id number]
[2018-12-18] MEDS: ENOXAPARIN 40 MG/0.4 ML SQ SCH (17:31)
[2018-12-18] MEDS ORDERED: MELATONIN 3 MG TABLET PO ONE (21:44)
[2018-12-19] MEDS: METRONIDAZOLE 500mg IVPB 500 MG/100 ML BAG IV SCH ×2 (01:10→08:10)
[2018-12-19 06:00] LABS: BUN Blood Urea Nitrogen 4 mg/dL (7-18); Bicarbonate 25 mmol/L (21-32); Glucose Level 88 mg/dL (74-106); Magnesium 1.6 mg/dL (1.8-2.4); Potassium 3.9 mmol/L (3.5-5.1); Sodium Level 142 mmol/L (136-145)
[2018-12-19] MEDS ORDERED: MAGNESIUM SULFATE 1 gm IVPB 1 GM/100 ML BAG IV ONE (06:14)
[2018-12-19] MEDS: NA CHLORIDE 0.9% 1,000 ML IV SCH (06:34)
[2018-12-19] MEDS ORDERED: KCL 20 MEQ/100 mL IVPB 20 MEQ/100 ML BAG IV SCH (08:00)
[2018-12-19] MEDS: CIPROFLOXACIN 400mg IV 400 MG/200 ML BAG IV SCH (08:10)
[2018-12-19] MEDS: PHENOL 1.4% ORAL SPRAY 180ML MM PRN (08:52)
[2018-12-19] MEDS ORDERED: POTASSIUM 25 MEQ EFFERV TAB PO ONE (09:00)
--- NOTE | 2018-12-20 06:59 | DS ---
Date of Discharge: 12/19/2018 Plasterer Spray Gun: Dr. Polk with General Surgery. Admitting Diagnoses: 1.Small bowel obstruction. 2.Endometrial cancer. 3.Leukemia. 4.Lymphoma. Discharge Diagnoses: 1.Small bowel obstruction likely due to adhesions, resolved with conservative treatment. 2.Endometrial cancer, currently on treatment at [facility]. 3.Leukemia, currently in remission. 4.Non-Hodgkin lymphoma, in remission. 5.Metastatic lung cancer. 6.Obesity, BMI 33. 7.Hypomagnesemia, replaced. Hospital Course: The patient is a 63-year-old female with past medical history of lymphoma, leukemia , stage IV endometrial cancer, currently on chemotherapy, who comes in with abdominal pain. The kalina ent was found to have early small-bowel obstruction found on the CT scan of the abdomen and pelvis. She had an elevated white count of 15.6. She was started on conservative treatment. Dr. Polk [facility] General Surgery was consulted. NG tube was placed. The patient had good output. The patient was then encouraged to ambulate. She was able to pass flatus. NG tube was clamped. She was able to corey erate clear liquids. Her diet was advanced. She was able to tolerate soft diet. She did have elect rolyte abnormalities including hypomagnesemia, which was corrected. She was able to tolerate her t. NG tube was discontinued and she did not have any further episodes of nausea or vomiting. She wa s able to have bowel movement. The patient was then cleared for discharge. She was sent home in a s table condition. Activity: As tolerated. Medications: As per medication reconciliation list. No need for antibiotics. Followup: Follow up with primary care physician in 2 to 3 days. Follow up with oncologist at [facility] as scheduled. Return to ER for worsening condition. Diet: [place]. Physical Examination: General: Awake, alert, oriented x3. Obese female, no acute distress. CV: S1, S2. No murmurs. Respiratory: Moving air well bilaterally. Abdomen: Soft, nontender, nondistended. Positive bowel sounds. Extremities: No clubbing, cyanosis, or edema. Neurologic: Nonfocal. Total time spent discharging the patient was 35 minutes. /MODKelli Voice ID: [id number] Report ID: [id number]
== END 2018-12-19 13:00 | disposition home or self-care (01) | DRG 389 ==
LOC: ER 14:20 → ERHOLD 19:22 → 2ND 20:56
PROVIDERS: ADMIT Family Medicine; ATTEND Family Medicine
DX: K56.51 Intestinal adhesions [bands], with partial obstruction (principal); C95.91 Leukemia, unspecified, in remission; C79.82 Secondary malignant neoplasm of genital organs; C34.90 Malignant neoplasm of unspecified part of unspecified bronchus or lung; I10 Essential (primary) hypertension; E83.42 Hypomagnesemia; E66.9 Obesity, unspecified; Z23 Encounter for immunization; Z68.33 Body mass index [BMI] 33.0-33.9, adult; Z85.72 Personal history of non-Hodgkin lymphomas; Z80.1 Family history of malignant neoplasm of trachea, bronchus and lung
CPT/HCPCS: 36415; 74177; 80048; 80053; 80076; 83690; 83735; 84100; 85025; 90670; 94760; 96361; 96365; 96366; 96375; 99285; G0009; J0744; J1650; J2270; J2405; J3475; J7030; Q9967

== ENCOUNTER 2019-01-06 01:47 | Emergency (ER) | payer OTHER ==
--- OUTSIDE RECORDS SUMMARY | 2019-01-06 01:50 | XMS REPORT ---
:1955 [facility] [address] [place] [address] Care Team Providers Name Role Phone Unavailable Unavailable Unavailable Payers Payer Name Policy Type Policy Number Effective Date Expiration Date Problems This patient has no known problems. Allergies, Adverse Reactions, Alerts Allergy Allergy Status Severity Reaction(s) Onset Inactive Treating Comments Name Type Date Date Clinician iodine DA Active AL 2018-11 00:00:0 0 No Known DA Active U 2018-0616 00:00:0 0 iodine DA Active AL 2017-12 00:00:0 0 LIDOCIANE DA Active 2016-11 [...] formula)REFERENCE RANGE: > or=60 ml/min/1.73M2IF PATIENT IS -BARBADIAN, MULTIPLY REPORTED RESULT BY1.21. CREATININE (test code=CREAT) [...] severe sepsis and/or septic shock. BASIC METABOLIC [id number] 06:04:00 Test Item Value Reference Range Comments [...] formula)REFERENCE RANGE: > or=60 ml/min/1.73M2IF PATIENT IS -BARBADIAN, MULTIPLY REPORTED RESULT BY1.21. CREATININE (test code=CREAT) 0.80 mg/dL 0.51-0.95 CALCIUM (test code=CA) 8.9 mg/dL 8.5-10.1 PROCALCITONIN (PCT)2018-11-22 06:04:00 Test Item Value Reference Range Comments PROCALCITONIN (PCT) (test code=PROCAL) ng/mL <0.5 CBC W/AUTO [id number] 05:28:00 Test Item Value Reference Range Comments [...] (test code=NRBC#) 0.00 K/mm3 0.0-0.1 - CTA [id number] 13:05:00 [facility] 1955 Age/S: 63 / F [address] [facility] Unit #: [id number] Loc: [place] [address] Phys: Yeison Rodriguez Jr, MD Acct: [id number] Dis Date: Status: ADM IN PHONE #: [phone] Exam Date: 11/21/2018 1230 FAX #: [phone] Reason: PE EXAMS: CPTCODE: [id number] CTA CHEST 36953 REASON FOR EXAM: PE TECHNIQUE: Volumetric CT [...] PAGE 1 Signed Report( CONTINUED) [facility] 1955 Age/S: 63 / F [address] [facility] Unit #: [id number] Loc:[place], [place] [address] Phys: Yeison Rodriguez Jr, MD Acct: [id number] Dis Date: Status: ADM IN PHONE #: [phone] Exam Date: 2018 1230 FAX #: [phone] Reason: PE EXAMS: CPT CODE: [id number] CTA CHEST 55700 <Continued> at 1305 Reported and signed by : RAMA WINSLOW CC: Kayce Nelson MD Technologist:Mich Feldman RT (R) CT (R) CTDI: 14.80 DLP: 478.85 Trnscb Date/Time: 11/21/2018 (1305) [id number] Orig Print D/T: S: 11/21/2018 (4299) CTDI: 14.80 DLP: 478.85 PAGE 2 Signed ReportARTERIAL BLOOD [id number] 12:03:00 Test Item Value Reference Range Comments [...] Include Electrolyte Panel? NPage RT? YB-TYPE NATRIURETIC [id number] 10:11 :00 Test Item Value Reference Range Comments B-TYPE NATRIURETIC PEPTIDE (test code=BNP) 39.6 PG/ML 0-100 LACTIC [id number] 09:34:00 Test Item Value Reference Range Comments LACTIC ACID (test code=LACT) 1.9 mmol/l 0.4-2.0 BASIC METABOLIC [id number] 09:33:00 Test Item Value Reference Range Comments [...] formula)REFERENCE RANGE: > or=60 ml/min/1.73M2IF PATIENT IS -BARBADIAN, MULTIPLY REPORTED RESULT BY1.21. CREATININE (test code=CREAT) 1.10 mg/dL 0.51-0.95 CALCIUM (test code=CA) 8.9 mg/dL 8.5-10.1 [id number] 09:33:00 Test Item Value Reference Range Comments TROPONIN-I (test code=TROPI) ng/ml 0.00-0.045 BASIC METABOLIC [id number] 09:33:00 Test Item Value Reference Range Comments [...] formula)REFERENCE RANGE: > or=60 ml/min/1.73M2IF PATIENT IS -BARBADIAN, MULTIPLY REPORTED RESULT BY1.21. CREATININE (test code=CREAT) 1.10 mg/dL 0.51-0.95 CALCIUM (test code=CA) 8.9 mg/dL 8.5-10.1 [id number] 09:33:00 Test Item Value Reference Range Comments TROPONIN-I (test <0.015 ng/ml 0.00-0.045 GUIDELINES: 0.08 - 0.09 code=TROPI) Indeterminate0.10 Risk Stratification Limit: Suggest sequential testing0.11 - 0.50 "[place] Zone": Suggest sequential testing0.60 - 1.50 AMI cutoff: Myocardial Injury by WHO criteria BASIC METABOLIC [id number] 09:26:00 Test Item Value Reference Range Comments SODIUM (test code=NA) 137 mmol/L 136-145 POTASSIUM (test code=K) 3.8 mmol/L 3.5-5.1 CHLORIDE (test code=CL) 102 mmol/L 98-107 CARBON DIOXIDE (test code=CO2) 26 mmol/L 21-32 GLUCOSE (test code=GLU) 96 mg/dL 70-100 BLOOD UREA NITROGEN (test code=BUN) 16 mg/dL 7-18 GLOMERULAR FILTRATION RATE (test code=GFR) >=60 CREATININE (test code=CREAT) mg/dL 0.51-0.95 CALCIUM (test code=CA) 8.9 mg/dL 8.5-10.1 [id number] 09:26:00 Test Item Value Reference Range Comments TROPONIN-I (test code=TROPI) ng/ml 0.00-0.045 PROTHROMBIN [id number] 09:25:00 Test Item Value Reference Range Comments [...] patients with mechanicalprosthetic heart valves. THROMBOPLASTIN TIME [id number] 09:25:00 Test Item Value Reference Range Comments THROMBOPLASTIN TIME PARTIAL (test code=PTT) 25.4 seconds 22.8-34.4 - XR CHEST 1 [id number] 09:18:00 [facility] Name: NUBIA CORTÉS [address] [place] [address] Phys: Yeison Rodriguez Jr, MD [place] [address] : 1955 Age: 63 Sex: F Acct: [id number] Loc: [facility] PHONE #: [phone] Exam Date: 11/21/2018 Status: REG ER FAX #: [phone] Radiology No: Unit No: [id number] Reason: chest pain EXAMS: CPT CODE: [id number] XR CHEST 1 V [id number] Fluoro Time: DAP (Gy m2): Air Kerma [...] (917) tSTEVEN Orig Print D/T: S: 11/21/2018 (17) PAGE 1 Signed ReportCBC W/AUTO [id number] 09:13:00 Test Item Value Reference Range Comments [...]
[2019-01-06 02:29] LABS: Urine Appearance TURBID; Urine Bilirubin NEGATIVE (NEG); Urine Blood 2+ (NEG); Urine Color ORANGE; Urine Glucose NEGATIVE (NEG); Urine Protein 2+ (NEG)
[2019-01-06 02:44] LABS: Urine RBC <5 /HPF (NONE SEEN)
[2019-01-06 02:45] LABS: Urine Amorphous Sediment 4+ /HPF (NONE SEEN); Urine Bacteria 20-50 /HPF (<20); Urine Culture Reflex Order REFLEXED
[2019-01-06] MEDS ORDERED: CEFTRIAXONE/SWI 1gm 1 GM/10 ML SYR ONE (02:50)
[2019-01-06] MEDS ORDERED: NA CHLORIDE 0.9% 1,000 ML ONE (02:50)
[2019-01-06] MEDS ORDERED: ONDANSETRON 4 MG/2 ML VIAL ONE (02:50)
[2019-01-06] MEDS ORDERED: MORPHINE 4 MG/ML SYR ONE ×2 (02:50→03:46)
[2019-01-06] MEDS ORDERED: ONDANSETRON 4 MG (ODT) TAB ONE (03:03)
[2019-01-06 03:06] LABS: Absolute Lymphocytes (CBC) 1.7 K/uL (0.7-4.9); Absolute Monocytes 1.6 K/uL (0.1-1.3); Absolute Neutrophil 9.1 K/uL (1.8-8.0); Basophils % 0.5 % (0-1.3); Eosinophils % 2.5 % (0-4.4); Hematocrit 41.1 % (36.0-45.0); MPV 7.7 fL (7.6-11.3); Monocytes % 12.3 % (3.3-12.3); RBC Red Blood Cell Count 4.38 M/uL (3.86-4.86)
[2019-01-06 03:19] LABS: Potassium 3.9 mmol/L (3.5-5.1)
--- NOTE | 2019-01-06 03:43 | EDPHYS ---
Physician Documentation [facility] Name: Shayy Blanco Age: 63 yrs Sex: Female : 1955 Arrival Date: 01/06/2019 Time: 01:48 Bed 20 Private MD: ADA Physician Mukund Stuart HPI: 01/06 03:31 This 63 yrs old Female presents to ER via Wheelchair with complaints of UTI, tw4 BACK PAIN. 03:31 The patient presents with urinary symptoms. Onset: The symptoms/episode began/occurred tw4 today. Modifying factors: The symptoms are alleviated by nothing, the symptoms are aggravated by nothing. The patient has not experienced similar symptoms in the past. Historical: - Allergies: 02:03 No Known Allergies; lp1 - Home Meds: 02:03 Atenolol Oral [Active]; Magnesium Oxide Oral [Active]; lp1 - PMHx: 02:03 Hypertension; Leukemia; LYMPHOMA; Uterine CA; lp1 - PSHx: 02:03 Hysterectomy; ; Cholecystectomy; lp1 - Immunization history:: Adult Immunizations up to date. - Social history:: Smoking status: Patient/guardian denies using tobacco. - Ebola Screening: : No symptoms or risks identified at this time. ROS: 03:31 Positive for urinary symptoms. tw4 03:31 Constitutional: Negative for fever, chills, and weight loss, Eyes: Negative for injury, pain, redness, and discharge, Cardiovascular: Negative for chest pain, palpitations, and edema, Respiratory: Negative for shortness of breath, cough, wheezing, and pleuritic chest pain, Abdomen/GI: Negative for abdominal pain, nausea, vomiting, diarrhea, and constipation, Back: Negative for injury and pain, MS/Extremity: Negative for injury and deformity, Skin: Negative for injury, rash, and discoloration. Exam: 03:31 Constitutional: This is a well developed, well nourished patient who is awake, alert, tw4 and in no acute distress. Head/Face: Normocephalic, atraumatic. Chest/axilla: Normal chest wall appearance and motion. Nontender with no deformity. No lesions are appreciated. Cardiovascular: Regular rate and rhythm with a normal S1 and S2. No gallops, murmurs, or rubs. Normal PMI, no JVD. No pulse deficits. Respiratory: Lungs have equal breath sounds bilaterally, clear to auscultation and percussion. No rales, rhonchi or wheezes noted. No increased work of breathing, no retractions or nasal flaring. Abdomen/GI: Soft, non-tender, with normal bowel sounds. No distension or tympany. No guarding or rebound. No evidence of tenderness throughout. 03:31 MS/ Extremity: Pulses equal, no cyanosis. Neurovascular intact. Full, normal range of motion. Neuro: Awake and alert, GCS 15, oriented to person, place, time, and situation. Cranial nerves II-XII grossly intact. Motor strength 5/5 in all extremities. Sensory grossly intact. Cerebellar exam normal. Normal gait. 03:31 Back: pain, is absent. Vital Signs: 02:01 BP 135 / 78; Pulse 114; Resp 18; Temp 98.5; Pulse Ox 95% on R/A; Weight 81.19 kg; lp1 Height 5 ft. 2 in. (157.48 cm); Pain 10/10; 03:00 BP 118 / 82; Pulse 100; Resp 18; Pulse Ox 93% on R/A; lp1 03:44 BP 114 / 70; Pulse 98; Resp 18; Pulse Ox 94% on R/A; Pain 8/10; lp1 04:05 BP 129 / 69; Pulse 96; Resp 18; Temp 98.1(O); Pulse Ox 96% on R/A; Pain 4/10; lp1 02:01 Body Mass Index 32.74 (81.19 kg, 157.48 cm) lp1 MDM: 01:57 Patient medically screened. tw4 03:31 Differential diagnosis: uterine fibroids, urinary tract infection. Data reviewed: vital tw4 signs, nurses notes. Data interpreted: Pulse oximetry: Interpretation: normal. Counseling: I had a detailed discussion with the patient and/or guardian regarding: the historical points, exam findings, and any diagnostic results supporting the discharge/admit diagnosis. Medication response: morphine markedly relieved the patient's pain. Symptoms have improved. Special discussion: I discussed with the patient/guardian in detail that at this point there is no indication for admission to the hospital. It is understood, however, that if the symptoms persist or worsen the patient needs to return immediately for re-evaluation. 01/06 02:25 Order name: Urinalysis W/Microscopic [facility] 01/06 02:46 Order name: Urine Culture [facility] 01/06 02:50 Order name: CBC [facility] Diff [facility] 01/06 02:50 Order name: Basic Metabolic Panel [facility] 01/06 01:58 Order name: Urine Dipstick-Ancillary (obtain specimen); Complete Time: 02:48 tw4 Administered Medications: 02:40 Drug: NS 0.9% 1000 ml Route: IV; Rate: 1 bolus; Site: right antecubital; lp1 04:00 Follow up: IV Status: Completed infusion; IV Intake: 1000ml lp1 02:40 Drug: morphine 4 mg Route: IVP; Site: right antecubital; lp1 03:15 Follow up: Response: Pain is decreased lp1 02:40 Drug: Zofran 4 mg Route: IVP; Site: right antecubital; lp1 03:15 Follow up: Response: Nausea is decreased lp1 02:43 Drug: Rocephin - (cefTRIAXone) 1 grams Route: IVPB; Infused Over: 30 mins; Site: right lp1 antecubital; 03:16 Follow up: Response: No adverse reaction; IV Status: Completed infusion; IV Intake: 81uhqu8 03:42 Drug: morphine 4 mg Route: IVP; Site: right antecubital; lp1 04:00 Follow up: Response: Pain is decreased lp1 Disposition: 01/06/19 03:43 Discharged to Home. Impression: acute urinary tract infection. - Condition is Stable. - Discharge Instructions: Urinary Tract Infection, Adult, Urinary Frequency, Adult. - Prescriptions for Macrodantin 100 mg Oral Capsule - take 1 capsule by ORAL route every 6 hours for 10 days; 40 capsule. - Family Work Release, Medication Reconciliation Form, Thank You Letter, Antibiotic Education, Prescription Opioid Use form. - Follow up: Private Physician; When: Upon discharge from the Emergency Department; Reason: If symptoms return, Recheck today's complaints, Continuance of care. - Problem is new. - Symptoms have improved. Signatures: Dispatcher [employer] EDMA Sana Koehler RN RN lp1 Mukund Stuart MD MD tw4 Corrections: (The following items were deleted from the chart) 02:25 01:58 UA MICROSCOPIC+U.LAB.BRZ ordered. EDMS EDMS 02:25 02:16 URINALYSIS+U.LAB.BRZ ordered. [facility] EDMS 04:07 03:43 01/06/2019 03:43 Discharged to Home. Impression: acute urinary tract infection. lp1 Condition is Stable. Forms are Medication Reconciliation Form, Thank You Letter, Antibiotic Education, Prescription Opioid Use. Follow up: Private Physician; When: Upon discharge from the Emergency Department; Reason: If symptoms return, Recheck today's complaints, Continuance of care. Problem is new. Symptoms have improved. tw4
--- NOTE | 2019-01-06 03:43 | ER ---
Nurse's Notes [facility] Name: Shayy Blanco Age: 63 yrs Sex: Female : 1955 Arrival Date: 01/06/2019 Time: 01:48 Bed 20 Private MD: Diagnosis: acute urinary tract infection Presentation: 01/06 01:58 Presenting complaint: Patient states: Pelvic pain that began 2 hours ago; Patient lp1 states it's common for her to develop a UTI after chemotherapy; Took OTC Pyridium medication with no relief. Transition of care: patient was not received from another setting of care. Onset of symptoms was January 06, 2019 at 00:00. Risk Assessment: Do you want to hurt yourself or someone else? Patient reports no desire to harm self or others. Initial Sepsis Screen: Does the patient meet any 2 criteria? No. Patient's initial sepsis screen is negative. Does the patient have a suspected source of infection? No. Patient's initial sepsis screen is negative. Care prior to arrival: None. 01:58 Method Of Arrival: Wheelchair lp1 01:58 Acuity: AVA 4 lp1 Historical: - Allergies: 02:03 No Known Allergies; lp1 - Home Meds: 02:03 Atenolol Oral [Active]; Magnesium Oxide Oral [Active]; lp1 - PMHx: 02:03 Hypertension; Leukemia; LYMPHOMA; Uterine CA; lp1 - PSHx: 02:03 Hysterectomy; ; Cholecystectomy; lp1 - Immunization history:: Adult Immunizations up to date. - Social history:: Smoking status: Patient/guardian denies using tobacco. - Ebola Screening: : No symptoms or risks identified at this time. Screenin:03 Abuse screen: Denies threats or abuse. Denies injuries from another. Nutritional lp1 screening: No deficits noted. Tuberculosis screening: No symptoms or risk factors identified. Fall Risk None identified. Assessment: 02:04 General: Appears uncomfortable, Behavior is appropriate for age. Pain: Complains of lp1 pain in suprapubic area Pain currently is 10 out of 10 on a pain scale. Quality of pain is described as sharp. Neuro: Level of Consciousness is awake, alert, obeys commands, Oriented to person, place, time, situation. Cardiovascular: Patient's skin is warm and dry. Respiratory: Respiratory effort is even, unlabored. GI: Abdomen is non-distended. : Reports pain in suprapubic area. EENT: No signs and/or symptoms were reported regarding the EENT system. Derm: Skin is pink, warm \T\ dry. Musculoskeletal: No deficits noted. 03:00 Reassessment: Patient appears in no apparent distress at this time. Patient and/or lp1 family updated on plan of care and expected duration. Pain level reassessed. Patient states pain improved at this time. 03:40 Reassessment: Patient states pain to pelvic area returning at this time; Provider lp1 notified. 04:06 Reassessment: Patient is alert, oriented x 3, equal unlabored respirations, skin lp1 warm/dry/pink. Patient states feeling better. Patient states symptoms have improved. Vital Signs: 02:01 BP 135 / 78; Pulse 114; Resp 18; Temp 98.5; Pulse Ox 95% on R/A; Weight 81.19 kg; lp1 Height 5 ft. 2 in. (157.48 cm); Pain 10/10; 03:00 BP 118 / 82; Pulse 100; Resp 18; Pulse Ox 93% on R/A; lp1 03:44 BP 114 / 70; Pulse 98; Resp 18; Pulse Ox 94% on R/A; Pain 8/10; lp1 04:05 BP 129 / 69; Pulse 96; Resp 18; Temp 98.1(O); Pulse Ox 96% on R/A; Pain 4/10; lp1 02:01 Body Mass Index 32.74 (81.19 kg, 157.48 cm) lp1 ED Course: 01:48 Patient arrived in ED. es 01:57 Sana Koehler, RN is Primary Nurse. lp1 01:57 Mukund Stuart MD is Attending Physician. tw4 02:00 Triage completed. lp1 02:00 Arm band placed on left wrist. lp1 02:04 Patient has correct armband on for positive identification. Placed in gown. Bed in low lp1 position. Call light in reach. Pulse ox on. NIBP on. 02:15 Straight cath inserted, using sterile technique, 16 Fr. Specimen obtained. lp1 02:30 Inserted saline lock: 22 gauge in right antecubital area, using aseptic technique. lp1 03:13 No provider procedures requiring assistance completed. lp1 04:06 IV discontinued, No redness/swelling at site. Pressure dressing applied. lp1 Administered Medications: 02:40 Drug: NS 0.9% 1000 ml Route: IV; Rate: 1 bolus; Site: right antecubital; lp1 04:00 Follow up: IV Status: Completed infusion; IV Intake: 1000ml lp1 02:40 Drug: morphine 4 mg Route: IVP; Site: right antecubital; lp1 03:15 Follow up: Response: Pain is decreased lp1 02:40 Drug: Zofran 4 mg Route: IVP; Site: right antecubital; lp1 03:15 Follow up: Response: Nausea is decreased lp1 02:43 Drug: Rocephin - (cefTRIAXone) 1 grams Route: IVPB; Infused Over: 30 mins; Site: right lp1 antecubital; 03:16 Follow up: Response: No adverse reaction; IV Status: Completed infusion; IV Intake: [id number] 03:42 Drug: morphine 4 mg Route: IVP; Site: right antecubital; lp1 04:00 Follow up: Response: Pain is decreased lp1 Intake: 03:16 IV: 10ml; Total: 10ml. lp1 04:00 IV: 1000ml; Total: 1010ml. lp1 Outcome: 03:43 Discharge ordered by . tw4 04:07 Discharged to home via wheelchair, with significant other. lp1 04:07 Condition: good 04:07 Discharge instructions given to patient, significant other, Instructed on discharge instructions, follow up and referral plans. medication usage, Demonstrated understanding of instructions, follow-up care, medications, Prescriptions given X 1. 04:07 Patient left the ED. lp1 Signatures: Angeles Prado Laura RN RN lp1 Mukund Stuart MD MD tw4
== END 2019-01-06 04:07 | disposition home or self-care (01) ==
LOC: ER 01:47
DX: N39.0 Urinary tract infection, site not specified (principal); I10 Essential (primary) hypertension; C55 Malignant neoplasm of uterus, part unspecified
CPT/HCPCS: 96365; 96361; 87088; 85025; 81001; 80048; 36415; 51702; 96375; 99284; J0696; J7030; J2405; 87086

== ENCOUNTER 2019-01-27 15:42 | Emergency (ER) | payer OTHER ==
--- OUTSIDE RECORDS SUMMARY | 2019-01-27 15:45 | XMS REPORT ---
:1955 [facility] Address [address] [place] [address] Care Team Providers Name Role Phone Unavailable Unavailable Unavailable Payers Payer Name Policy Type Policy Number Effective Date Expiration Date Problems This patient has no known problems. Allergies, Adverse Reactions, Alerts Allergy Allergy Status Severity Reaction(s) Onset Inactive Treating Comments Name Type Date Date Clinician iodine DA Active [place] 2018-11 00:00:0 0 No Known DA Active U 2018-0616 00:00:0 0 iodine DA Active [place] 2017-12 00:00:0 0 LIDOCIANE DA Active 2016-11 [...] formula)REFERENCE RANGE: > or=60 ml/min/1.73M2IF PATIENT IS -VIET[place]ESE, MULTIPLY REPORTED RESULT BY1.21. CREATININE (test code=CREAT) [...] severe sepsis and/or septic shock. BASIC METABOLIC [id number] 06:04:00 Test Item Value Reference Range Comments [...] formula)REFERENCE RANGE: > or=60 ml/min/1.73M2IF PATIENT IS -[place], MULTIPLY REPORTED RESULT BY1.21. CREATININE (test code=CREAT) 0.80 mg/dL 0.51-0.95 CALCIUM (test code=CA) 8.9 mg/dL 8.5-10.1 PROCALCITONIN (PCT)2018-11-22 06:04:00 Test Item Value Reference Range Comments PROCALCITONIN (PCT) (test code=PROCAL) ng/mL <0.5 CBC W/AUTO [id number] 05:28:00 Test Item Value Reference Range Comments [...] (test code=NRBC#) 0.00 K/mm3 0.0-0.1 - CTA [id number] 13:05:00 [facility] 1955 Age/S: 63 / F [address] [facility] Unit #: [id number] Loc: [place] [address] Phys: Yeison Rodriguez Jr, MD Acct: [id number] Dis Date: Status: ADM IN PHONE #: [phone] Exam Date: 11/21/2018 1230 FAX #: [phone] Reason: PE EXAMS: CPTCODE: [id number] CTA CHEST 40079 REASON FOR EXAM: PE TECHNIQUE: Volumetric CT [...] PAGE 1 Signed Report( CONTINUED) [facility] 1955 Age/S: 63 / F [address] [facility] Unit #: [id number] Loc:[place], [place] [address] Phys: Yeison Rodriguez Jr, MD Acct: [id number] Dis Date: Status: ADM IN PHONE #: [phone] Exam Date: 2018 1230 FAX #: [phone] Reason: PE EXAMS: CPT CODE: [id number] CTA CHEST 53308 <Continued> at 1305 Reported and signed by : RAMA WINSLOW CC: Kayce Nelson MD Technologist:Mich Feldman RT (R) CT (R) CTDI: 14.80 DLP: 478.85 Trnscb Date/Time: 11/21/2018 (1305) [id number] Orig Print D/T: S: 11/21/2018 (6752) CTDI: 14.80 DLP: 478.85 PAGE 2 Signed ReportARTERIAL BLOOD [id number] 12:03:00 Test Item Value Reference Range Comments [...] Include Electrolyte Panel? NPage RT? YB-TYPE NATRIURETIC [id number] 10:11 :00 Test Item Value Reference Range Comments B-TYPE NATRIURETIC PEPTIDE (test code=BNP) 39.6 PG/ML 0-100 LACTIC [id number] 09:34:00 Test Item Value Reference Range Comments LACTIC ACID (test code=LACT) 1.9 mmol/l 0.4-2.0 BASIC METABOLIC [id number] 09:33:00 Test Item Value Reference Range Comments [...] formula)REFERENCE RANGE: > or=60 ml/min/1.73M2IF PATIENT IS -VIET[place]ESE, MULTIPLY REPORTED RESULT BY1.21. CREATININE (test code=CREAT) 1.10 mg/dL 0.51-0.95 CALCIUM (test code=CA) 8.9 mg/dL 8.5-10.1 [id number] 09:33:00 Test Item Value Reference Range Comments TROPONIN-I (test code=TROPI) ng/ml 0.00-0.045 BASIC METABOLIC [id number] 09:33:00 Test Item Value Reference Range Comments [...] formula)REFERENCE RANGE: > or=60 ml/min/1.73M2IF PATIENT IS -[place], MULTIPLY REPORTED RESULT BY1.21. CREATININE (test code=CREAT) 1.10 mg/dL 0.51-0.95 CALCIUM (test code=CA) 8.9 mg/dL 8.5-10.1 [id number] 09:33:00 Test Item Value Reference Range Comments TROPONIN-I (test <0.015 ng/ml 0.00-0.045 GUIDELINES: 0.08 - 0.09 code=TROPI) Indeterminate0.10 Risk Stratification Limit: Suggest sequential testing0.11 - 0.50 "[place] Zone": Suggest sequential testing0.60 - 1.50 AMI cutoff: Myocardial Injury by WHO criteria BASIC METABOLIC [id number] 09:26:00 Test Item Value Reference Range Comments SODIUM (test code=NA) 137 mmol/L 136-145 POTASSIUM (test code=K) 3.8 mmol/L 3.5-5.1 CHLORIDE (test code=CL) 102 mmol/L 98-107 CARBON DIOXIDE (test code=CO2) 26 mmol/L 21-32 GLUCOSE (test code=GLU) 96 mg/dL 70-100 BLOOD UREA NITROGEN (test code=BUN) 16 mg/dL 7-18 GLOMERULAR FILTRATION RATE (test code=GFR) >=60 CREATININE (test code=CREAT) mg/dL 0.51-0.95 CALCIUM (test code=CA) 8.9 mg/dL 8.5-10.1 [id number] 09:26:00 Test Item Value Reference Range Comments TROPONIN-I (test code=TROPI) ng/ml 0.00-0.045 PROTHROMBIN [id number] 09:25:00 Test Item Value Reference Range Comments [...] patients with mechanicalprosthetic heart valves. THROMBOPLASTIN TIME [id number] 09:25:00 Test Item Value Reference Range Comments THROMBOPLASTIN TIME PARTIAL (test code=PTT) 25.4 seconds 22.8-34.4 - XR CHEST 1 [id number] 09:18:00 [facility] Name: NUBIA CORTÉS [address] [place] [address] Phys: Yeison Rodriguez Jr, MD [place] [address] : 1955 Age: 63 Sex: F Acct: [id number] Loc: [facility] PHONE #: [phone] Exam Date: 11/21/2018 Status: REG ER FAX #: [phone] Radiology No: Unit No: [id number] Reason: chest pain EXAMS: CPT CODE: [id number] XR CHEST 1 V 62446 Fluoro Time: DAP (Gy m2): Air Kerma [...] (917) tSTEVEN Orig Print D/T: S: 11/21/2018 (32) PAGE 1 Signed ReportCBC W/AUTO [id number] 09:13:00 Test Item Value Reference Range Comments [...]
[2019-01-27] MEDS ORDERED: CEFTRIAXONE 1000 MG/VIAL ONE (16:38)
[2019-01-27] MEDS ORDERED: LIDOCAINE 1% MPF 2 ML AMPULE ONE (16:38)
--- NOTE | 2019-01-27 16:51 | EDPHYS ---
Physician Documentation [facility] Name: Shayy Blanco Age: 63 yrs Sex: Female : 1955 Arrival Date: 01/27/2019 Time: 15:47 Bed 17 Private MD: ED Physician Raheel Jaeger HPI: 01/27 16:13 This 63 yrs old Female presents to ER via Ambulatory with complaints of kb Urinary Problem. 16:13 The patient presents with urinary symptoms, dysuria, frequency. Onset: The kb symptoms/episode began/occurred this morning. Modifying factors: The symptoms are alleviated by nothing, the symptoms are aggravated by urinating. Associated signs and symptoms: Pertinent positives: dysuria, urinary frequency. Severity of symptoms: At their worst the symptoms were moderate, in the emergency department the symptoms are unchanged. The patient has experienced similar episodes in the past. The patient has not recently seen a physician. "I have a UTI and I need a shot of rocephin." Pt states she had chemo and always gets a UTI afterwards. Pt [place] and [place] just goes to her PCP to get the shot, but didn't think she could make it back for that. States the burning and frequency started this morning. . Historical: - Allergies: 15:50 No Known Allergies; aj - Immunization history:: Adult Immunizations up to date. - Social history:: Smoking status: Patient/guardian denies using tobacco. - Ebola Screening: : No symptoms or risks identified at this time. ROS: 16:12 Constitutional: Negative for fever, chills, and weight loss, Cardiovascular: Negative kb for chest pain, palpitations, and edema, Respiratory: Negative for shortness of breath, cough, wheezing, and pleuritic chest pain, Abdomen/GI: Negative for abdominal pain, nausea, vomiting, diarrhea, and constipation, MS/Extremity: Negative for injury and deformity, Skin: Negative for injury, rash, and discoloration, Neuro: Negative for headache, weakness, numbness, tingling, and seizure. 16:12 : Positive for urinary symptoms, urinary frequency, burning with urination. Exam: 16:12 Constitutional: This is a well developed, well nourished patient who is awake, alert, kb and in no acute distress. Head/Face: Normocephalic, atraumatic. Neck: Trachea midline, no thyromegaly or masses palpated, and no cervical lymphadenopathy. Supple, full range of motion without nuchal rigidity, or vertebral point tenderness. No Meningismus. Chest/axilla: Normal chest wall appearance and motion. Nontender with no deformity. No lesions are appreciated. Cardiovascular: Regular rate and rhythm with a normal S1 and S2. No gallops, murmurs, or rubs. Normal PMI, no JVD. No pulse deficits. Respiratory: Lungs have equal breath sounds bilaterally, clear to auscultation and percussion. No rales, rhonchi or wheezes noted. No increased work of breathing, no retractions or nasal flaring. Abdomen/GI: Soft, non-tender, with normal bowel sounds. No distension or tympany. No guarding or rebound. No evidence of tenderness throughout. Back: No spinal tenderness. No costovertebral tenderness. Full range of motion. Skin: Warm, dry with normal turgor. Normal color with no rashes, no lesions, and no evidence of cellulitis. MS/ Extremity: Pulses equal, no cyanosis. Neurovascular intact. Full, normal range of motion. Neuro: Awake and alert, GCS 15, oriented to person, place, time, and situation. Cranial nerves II-XII grossly intact. Motor strength 5/5 in all extremities. Sensory grossly intact. Cerebellar exam normal. Normal gait. Vital Signs: 15:50 BP 139 / 74; Pulse 114; Resp 20; Temp 97.9; Pulse Ox 96% on R/A; Weight 77.11 kg; aj Height 5 ft. 2 in. (157.48 cm); 15:50 Body Mass Index 31.09 (77.11 kg, 157.48 cm) aj MDM: 16:03 Patient medically screened. kb 16:12 Data reviewed: vital signs, nurses notes. Data interpreted: Pulse oximetry: on room air kb is 96 %. Interpretation: normal. 16:50 Counseling: I had a detailed discussion with the patient and/or guardian regarding: the kb historical points, exam findings, and any diagnostic results supporting the discharge/admit diagnosis, lab results, the need for outpatient follow up, a family practitioner, to return to the emergency department if symptoms worsen or persist or if there are any questions or concerns that arise at home. ED course: Pt does not want to wait for umic. Wants to leave now. . 01/27 15:55 Order name: Urine Culture 01/27 15:55 Order name: Urine Microscopic Only 01/27 15:55 Order name: Urine Dipstick-Ancillary (obtain specimen); Complete Time: 16:37 kb Administered Medications: 16:28 Drug: Rocephin (cefTRIAXone) 1 grams Route: IM; Site: right gluteus; sv 17:14 Follow up: Response: No adverse reaction sv Disposition: 01/27/19 16:51 Discharged to Home. Impression: Urinary tract infection, site not specified. - Condition is Stable. - Discharge Instructions: Urinary Tract Infection, Adult, [id number]. - Prescriptions for Augmentin 875- 125 mg Oral Tablet - take 1 tablet by ORAL route every 12 hours for 10 days; 20 tablet. - Medication Reconciliation Form, Thank You Letter, Antibiotic Education, Prescription Opioid Use form. - Follow up: Emergency Department; When: As needed; Reason: Worsening of condition. Follow up: Private Physician; When: 2 - 3 days; Reason: Recheck today's complaints, Continuance of care, Re-evaluation by your physician. Signatures: Dispatcher [employer] EDMS Judy Mercado, PIG MACHINE OPERATOR-C PIG MACHINE OPERATOR-Nayeli Levy RN RN Kacy Hastings RN RN dick Corrections: (The following items were deleted from the chart) 17:15 16:51 01/27/2019 16:51 Discharged to Home. Impression: Urinary tract infection, site sv not specified. Condition is Stable. Forms are Medication Reconciliation Form, Thank You Letter, Antibiotic Education, Prescription Opioid Use. Follow up: Emergency Department; When: As needed; Reason: Worsening of condition. Follow up: Private Physician; When: 2 - 3 days; Reason: Recheck today's complaints, Continuance of care, Re-evaluation by your physician. kb
--- NOTE | 2019-01-27 16:51 | ER ---
Nurse's Notes [facility] Name: Shayy Blanco Age: 63 yrs Sex: Female : 1955 Arrival Date: 01/27/2019 Time: 15:47 Bed 17 Private MD: Diagnosis: Urinary tract infection, site not specified Presentation: 01/27 15:49 Presenting complaint: Patient states: Burning with urination that started this AM. aj Transition of care: patient was not received from another setting of care. Onset of symptoms was January 27, 2019. Risk Assessment: Do you want to hurt yourself or someone else? Patient reports no desire to harm self or others. Care prior to arrival: None. 15:49 Method Of Arrival: Ambulatory aj 15:49 Acuity: AVA 3 aj 16:15 Initial Sepsis Screen: Does the patient meet any 2 criteria? No. Patient's initial sv sepsis screen is negative. Does the patient have a suspected source of infection? No. Patient's initial sepsis screen is negative. Triage Assessment: 15:50 General: Appears in no apparent distress. comfortable, Behavior is calm, cooperative, aj appropriate for age. Pain: Complains of pain in pelvis. Neuro: Level of Consciousness is awake, alert, obeys commands, Oriented to person, place, time, situation, Appropriate for age. Respiratory: Airway is patent Respiratory effort is even, unlabored, Respiratory pattern is regular, symmetrical. : Reports burning with urination. Derm: Skin is intact, is healthy with good turgor, Skin is pink, warm \T\ dry. normal. Historical: - Allergies: 15:50 No Known Allergies; aj - Immunization history:: Adult Immunizations up to date. - Social history:: Smoking status: Patient/guardian denies using tobacco. - Ebola Screening: : No symptoms or risks identified at this time. Screenin:15 Abuse screen: Denies threats or abuse. Denies injuries from another. Nutritional sv screening: No deficits noted. Tuberculosis screening: No symptoms or risk factors identified. Fall Risk None identified. Assessment: 16:15 General: Appears in no apparent distress. uncomfortable, well developed, Behavior is sv calm, cooperative, appropriate for age. Pain: Complains of pain in pelvis. Neuro: Level of Consciousness is awake, alert, obeys commands, Oriented to person, place, time, situation, Moves all extremities. Full function Gait is steady. Respiratory: Respiratory effort is even, unlabored, Respiratory pattern is regular, symmetrical. : Reports burning with urination. Derm: Skin is pink, warm \T\ dry. 17:14 Reassessment: Patient appears in no apparent distress at this time. No changes from sv previously documented assessment. Patient and/or family updated on plan of care and expected duration. Pain level reassessed. Patient is alert, oriented x 3, equal unlabored respirations, skin warm/dry/pink. Vital Signs: 15:50 BP 139 / 74; Pulse 114; Resp 20; Temp 97.9; Pulse Ox 96% on R/A; Weight 77.11 kg; aj Height 5 ft. 2 in. (157.48 cm); 15:50 Body Mass Index 31.09 (77.11 kg, 157.48 cm) aj ED Course: 15:47 Patient arrived in ED. tw3 15:50 Triage completed. aj 15:50 Arm band placed on right wrist. Patient placed in waiting room. aj 16:00 Judy Mercado FNP-C is PHCP. kb 16:00 Raheel Jaeger MD is Attending Physician. kb 16:09 Nayeli Peres, RN is Primary Nurse. sv 16:15 Patient has correct armband on for positive identification. Bed in low position. Door sv closed. Head of bed elevated. 17:14 No provider procedures requiring assistance completed. Patient did not have IV access sv during this emergency room visit. Administered Medications: 16:28 Drug: Rocephin (cefTRIAXone) 1 grams Route: IM; Site: right gluteus; sv 17:14 Follow up: Response: No adverse reaction sv Outcome: 16:51 Discharge ordered by MD. kb 17:15 Discharged to home ambulatory, with family. sv 17:15 Condition: stable 17:15 Discharge instructions given to patient, family, Instructed on discharge instructions, follow up and referral plans. medication usage, Demonstrated understanding of instructions, follow-up care, medications, Prescriptions given X 1. 17:15 Patient left the ED. sv Signatures: Judy Mercado FNP-C FNP-Ckb Verde, Stephanie, RN RN sv Myers, Amanda, RN RN aj Wade, Tia tw3
[2019-01-27 17:59] LABS: Urine Bacteria 20-50 /HPF (<20); Urine Culture Reflex Order NOT NEEDED
[2019-01-27 19:15] LABS: Urine Blood 2+ (NEG); Urine Glucose TRACE (NEG); Urine Protein 3+ (NEG); Urine Specific Gravity <1.005 (1.005-1.030)
== END 2019-01-27 17:15 | disposition home or self-care (01) ==
LOC: ER 15:42
DX: N39.0 Urinary tract infection, site not specified (principal)
CPT/HCPCS: 87088; 87086; 96372; 99283; J2001; 81003; 81015